=== PATIENT | female | born 1945 | race Caucasian/White ===

== ENCOUNTER → 2016-08-02 | Outpatient (CLI) | payer OTHER, MEDICARE | LOC: FIMAGING 16:52 | PROVIDERS: ATTEND Radiology Diagnostic Radiology | DX: N90.89 Other specified noninflammatory disorders of vulva and perineum (principal) ==

== ENCOUNTER → 2016-09-30 | Outpatient (CLI) | payer OTHER, MEDICARE | LOC: FIMAGING 11:16 | PROVIDERS: ATTEND Nurse Practitioner | DX: N90.89 Other specified noninflammatory disorders of vulva and perineum (principal); C20 Malignant neoplasm of rectum ==

== ENCOUNTER 2016-10-25 11:48 | Day surgery (SDC) | payer OTHER, MEDICARE ==
[2016-10-25] MEDS ORDERED: LIDOCAINE 2% JELLY 20 ML (UROJECT) ONE (11:54)
[2016-10-25] MEDS ORDERED: NS 1,000 ML IV SCH (12:00)
[2016-10-25] MEDS ORDERED: DEXMEDETOMIDINE HCL 400 MCG in NS 100 ML IV SCH (12:30)
[2016-10-25] MEDS ORDERED: VANCOMYCIN HCL/NORMAL SALINE 250 ML IV ONE (12:30)
[2016-10-25] MEDS ORDERED: fentaNYL 100 MCG/2 ML INJ ONE (13:34)
[2016-10-25] MEDS ORDERED: MIDAZOLAM 2 MG/2 ML VIAL ONE (13:34)
[2016-10-25] MEDS ORDERED: IOPAMIDOL (ISOVUE-300) 100 ML BTL ONE (14:05)
[2016-10-25] MEDS ORDERED: ONDANSETRON 4 MG/2 ML VIAL IVP PRN (14:29)
[2016-10-25 15:25] VITALS: PULSE 53; RESP 16; TEMP 96.8
[2016-10-25 15:54] VITALS: BP 137/78; O2SAT 96
== END 2016-10-25 15:45 | disposition home or self-care (01) ==
LOC: FIMAGING 11:48
PROVIDERS: ATTEND Radiology Diagnostic Radiology
PROC: 0T29X0Z Change Drainage Device in Ureter, External Approach (ICD-10-PCS; principal; 2016-10-25 14:12)
DX: Z46.6 Encounter for fitting and adjustment of urinary device (principal); C76.3 Malignant neoplasm of pelvis
CPT/HCPCS: 50385; 99152; C1729; C1769; C1773; J1644; J2250; J3010; J3370; Q9967

== ENCOUNTER 2017-03-03 07:58 | Day surgery (SDC) | payer OTHER, MEDICARE ==
[~2017-03-03 07:58] MED LIST: DEXMEDETOMIDINE HCL 200 MCG in NS 50 ML IV ONE
[2017-03-03] MEDS ORDERED: NS 1,000 ML IV SCH (08:15)
[2017-03-03] MEDS ORDERED: VANCOMYCIN HCL/NORMAL SALINE 250 ML IV ONE (09:00)
[2017-03-03] MEDS ORDERED: DEXMEDETOMIDINE HCL 200 MCG in NS 50 ML IV ONE (09:00)
[2017-03-03] MEDS ORDERED: fentaNYL 100 MCG/2 ML INJ ONE ×2 (09:23→09:53)
[2017-03-03] MEDS ORDERED: MIDAZOLAM 2 MG/2 ML VIAL ONE ×2 (09:23→09:54)
[2017-03-03] MEDS ORDERED: IOPAMIDOL (ISOVUE-300) 100 ML BTL ONE (09:25)
[2017-03-03] MEDS ORDERED: LIDOCAINE 2% JELLY 20 ML (UROJECT) ONE (09:25)
== END 2017-03-03 12:30 | disposition home or self-care (01) ==
LOC: FIMAGING 07:58
PROVIDERS: ATTEND Internal Medicine Hematology & Oncology
PROC: 0T29X0Z Change Drainage Device in Ureter, External Approach (ICD-10-PCS; principal; 2017-03-03 10:50)
DX: Z46.6 Encounter for fitting and adjustment of urinary device (principal); T83.122A Displacement of indwelling ureteral stent, initial encounter; C21.8 Malignant neoplasm of overlapping sites of rectum, anus and anal canal; C20 Malignant neoplasm of rectum; Z87.440 Personal history of urinary (tract) infections; Z93.3 Colostomy status
CPT/HCPCS: J1642; J1644; J2250; J3010; J3370; Q9967

== ENCOUNTER → 2017-04-27 | Outpatient (CLI) | payer OTHER, MEDICARE ==
[~2017-04-27] MED LIST changes: -DEXMEDETOMIDINE HCL 200 MCG in NS 50 ML IV ONE; +GADOBUTROL 10 ML VIAL IVP ONE
== END ==
LOC: FIMAGING 15:38
PROVIDERS: ATTEND Internal Medicine Hematology & Oncology
DX: M51.36 Other intervertebral disc degeneration, lumbar region (principal); M48.061 Spinal stenosis, lumbar region without neurogenic claudication; M48.07 Spinal stenosis, lumbosacral region; M46.96 Unspecified inflammatory spondylopathy, lumbar region; D70.9 Neutropenia, unspecified; C21.8 Malignant neoplasm of overlapping sites of rectum, anus and anal canal; C20 Malignant neoplasm of rectum
CPT/HCPCS: 72158; A9585; J1642

== ENCOUNTER → 2017-05-09 | Outpatient (CLI) | payer OTHER, MEDICARE | LOC: FIMAGING 15:00 | PROVIDERS: ATTEND Internal Medicine Hematology & Oncology | DX: M84.48XA Pathological fracture, other site, initial encounter for fracture (principal); M51.86 Other intervertebral disc disorders, lumbar region; C21.8 Malignant neoplasm of overlapping sites of rectum, anus and anal canal ==

== ENCOUNTER 2017-05-19 06:51 | Day surgery (SDC) | payer OTHER, MEDICARE ==
[2017-05-19 07:57] VITALS: PULSE 57; RESP 20
[2017-05-19 08:07] LABS: PLATELET COUNT 146 10^3/uL (150-400)
[2017-05-19] MEDS ORDERED: MEPERIDINE 25 MG/ML SYR IVP PRN (08:07)
[2017-05-19] MEDS ORDERED: ceFAZolin 2 GM/SWFI 2 GM/20 ML SYR IVP ONE (08:07)
[2017-05-19] MEDS ORDERED: FLUMAZENIL 0.5 MG/5 ML MDV IVP PRN (08:07)
[2017-05-19] MEDS ORDERED: MIDAZOLAM 2 MG/2 ML VIAL IVP PRN (08:07)
[2017-05-19] MEDS ORDERED: fentaNYL 100 MCG/2 ML INJ IVP PRN (08:07)
[2017-05-19] MEDS ORDERED: DEXAMETHASONE 10 MG/ML VIAL IVP ONE (08:07)
[2017-05-19] MEDS ORDERED: NALOXONE HCL 0.4 MG/ML INJ IVP PRN (08:07)
[2017-05-19] MEDS ORDERED: HEPARIN 10,000 UNIT/10 ML MDV IVP PRN (08:07)
[2017-05-19] MEDS ORDERED: GLUCAGON HCL 1 MG VIAL IVP PRN (08:07)
[2017-05-19] MEDS ORDERED: ALTEPLASE 2 MG VIAL IVP PRN (08:07)
[2017-05-19] MEDS ORDERED: NS 1,000 ML IV ONE (08:07)
[2017-05-19] MEDS ORDERED: PROTAMINE SULFATE 50 MG/5 ML VIAL IVP PRN (08:07)
[2017-05-19] MEDS ORDERED: LIDOCAINE 1% 300 MG/30 ML SDV ONE (08:33)
[2017-05-19] MEDS ORDERED: BUPIVACAINE 0.5% 10 ML SDV ONE (08:34)
--- NOTE | 2017-05-19 08:34 | PDGENHP ---
History & Physical Chief Complaint: Right posterior buttock pain, radiating to groin History of Present Illness: 6 months of worsening pain 8/10. MRI shows R sacral insufficiency fracture. Sacrum was irradiated for metastatic colon CA one year ago. Pertinent Past, Social, Family History: Colostomy, Iliostomy, nephrostomy, GERD , GI bleed.Liver metastases. Former smoker. Relevant Physical Exam: MRI reviewed. Cardiorespiratory Assessment: Lungs: clear to auscultation. Heart: RRR, no murmur, 56 bpm.
[2017-05-19 08:36] LABS: INR 1.01 (0.83-1.16); PROTIME(PATIENT) 13.5 SEC (12.0-15.0)
[2017-05-19] MEDS ORDERED: ONDANSETRON 4 MG/2 ML VIAL ONE (08:37)
--- NOTE | 2017-05-19 08:38 | PDPROPOC ---
Sedation Plan of Care ASA Classification: ASA 3 Planned drugs: fentanyl, midazolam Mallampati Score: Class 2 Mallampati Reference Image: Patient passed 3-3-2 rule?: Yes
[2017-05-19] MEDS ORDERED: ONDANSETRON DISINTEGRATING 4 MG TAB PO PRN (10:44)
[2017-05-19] MEDS ORDERED: ONDANSETRON 4 MG/2 ML VIAL IVP PRN (10:44)
--- NOTE | 2017-05-19 10:44 | PDRADPN ---
Radiology Procedure Note Date of Procedure: 05/19/17 Radiologist: Raymond Raza Anesthesia: IV Sedation Pre-op Diagnosis: Sacral fracture Post-op Diagnosis: Same Indication: Post-radiation osteonecrosis, metastatic colon CA Procedure: Vertebroplasty of the sacrum Finding(s): 10 ml cement instilled via 4 needles. Inf/Abcess present in the surg proc area at time of surgery?: No EBL: Minimal Complications: None.
[2017-05-19 13:27] VITALS: BP 132/68; TEMP 97.5; O2SAT 95
== END 2017-05-19 13:15 | disposition home or self-care (01) ==
LOC: FIMAGING 06:51
PROVIDERS: ATTEND Radiology Diagnostic Radiology
PROC: 0QU13JZ Supplement Sacrum with Synthetic Substitute, Percutaneous Approach (ICD-10-PCS; principal; 2017-05-19 10:54)
DX: M87.38 Other secondary osteonecrosis, other site (principal); Z85.830 Personal history of malignant neoplasm of bone; Z92.3 Personal history of irradiation; Z85.05 Personal history of malignant neoplasm of liver; C18.9 Malignant neoplasm of colon, unspecified; Z87.891 Personal history of nicotine dependence
CPT/HCPCS: J0690; J1100; J1642; J2250; J2310; J2405; J3010

== ENCOUNTER → 2017-06-06 | Outpatient (CLI) | payer OTHER, MEDICARE | LOC: FIMAGING 18:40 | PROVIDERS: ATTEND Internal Medicine Hematology & Oncology | DX: S32.491A Other specified fracture of right acetabulum, initial encounter for closed fracture (principal); M89.8X8 Other specified disorders of bone, other site; M25.451 Effusion, right hip; N13.30 Unspecified hydronephrosis; N13.4 Hydroureter | CPT/HCPCS: 73723; A9585 ==

== ENCOUNTER 2017-06-09 10:05 | Day surgery (SDC) | payer OTHER, MEDICARE ==
[~2017-06-09 10:05] MED LIST changes: +DEXMEDETOMIDINE IN 0.9 % NACL 50 ML IV ONE; -GADOBUTROL 10 ML VIAL IVP ONE; +VANCOMYCIN HCL/NORMAL SALINE 250 ML IV ONE
[2017-06-09] MEDS ORDERED: fentaNYL 100 MCG/2 ML INJ IVP PRN (10:13)
[2017-06-09] MEDS ORDERED: FLUMAZENIL 0.5 MG/5 ML MDV IVP PRN (10:13)
[2017-06-09] MEDS ORDERED: NALOXONE HCL 0.4 MG/ML INJ IVP PRN (10:13)
[2017-06-09] MEDS ORDERED: MIDAZOLAM 2 MG/2 ML VIAL IVP PRN (10:13)
[2017-06-09] MEDS ORDERED: MEPERIDINE 25 MG/ML SYR IVP PRN (10:13)
[2017-06-09] MEDS ORDERED: NS 1,000 ML IV SCH (10:15)
[2017-06-09] MEDS ORDERED: NALOXONE HCL 0.4 MG/ML INJ ONE (11:19)
[2017-06-09] MEDS ORDERED: MIDAZOLAM 2 MG/2 ML VIAL ONE (11:19)
[2017-06-09] MEDS ORDERED: fentaNYL 100 MCG/2 ML INJ ONE (11:20)
[2017-06-09] MEDS ORDERED: FLUMAZENIL 0.5 MG/5 ML MDV IVP ONE (11:20)
--- NOTE | 2017-06-09 12:11 | PDGENHP ---
History & Physical Chief Complaint: routine ureteral stent change History of Present Illness: pelvic cancer, under control. Routine trans- uretheral stent change. Acetabular fracture. Pertinent Past, Social, Family History: Chronic steroid use. Relevant Physical Exam: not in distress. Cardiorespiratory Assessment: RRR. CTA
--- NOTE | 2017-06-09 12:11 | PDPROPOC ---
Sedation Plan of Care Sedation Plan of Care: vital signs stable, mental status noted, patient educated of risks, benefits, alternatives, patient can tolerate sedation ASA Classification: ASA 3 Planned drugs: fentanyl, midazolam Mallampati Score: Class 1 Mallampati Reference Image: Patient passed 3-3-2 rule?: Yes
[2017-06-09] MEDS ORDERED: LIDOCAINE 2% JELLY 20 ML (UROJECT) ONE (14:44)
[2017-06-09] MEDS ORDERED: ACETAMINOPHEN 325 MG TAB PO PRN (15:15)
[2017-06-09] MEDS ORDERED: ONDANSETRON 4 MG/2 ML VIAL IVP PRN (15:15)
--- NOTE | 2017-06-09 15:16 | PDRADPN ---
Radiology Procedure Note Date of Procedure: 06/09/17 Radiologist: Snehal Ramos Anesthesia: IV Sedation Pre-op Diagnosis: pelvic cancer; kidney blockage Post-op Diagnosis: same Indication: routine ureteral stent change Procedure: transuretheral ureter stent change Finding(s): see report Inf/Abcess present in the surg proc area at time of surgery?: No EBL: Minimal Complications: none
[2017-06-09] MEDS ORDERED: IOPAMIDOL (ISOVUE-300) 100 ML BTL ONE (15:21)
[2017-06-09 15:58] VITALS: TEMP 97
[2017-06-09 15:59] VITALS: PULSE 50; RESP 16
[2017-06-09 16:25] VITALS: BP 138/77; O2SAT 96
== END 2017-06-09 16:20 | disposition home or self-care (01) ==
LOC: FIMAGING 10:05
PROVIDERS: ATTEND Radiology Diagnostic Radiology
PROC: 0T29X0Z Change Drainage Device in Ureter, External Approach (ICD-10-PCS; principal; 2017-06-09 15:26)
DX: Z46.6 Encounter for fitting and adjustment of urinary device (principal); C20 Malignant neoplasm of rectum; C78.6 Secondary malignant neoplasm of retroperitoneum and peritoneum; N13.5 Crossing vessel and stricture of ureter without hydronephrosis; Z87.891 Personal history of nicotine dependence
CPT/HCPCS: 50385; 99152; 99153; C1729; C1769; C1773; C1894; J1642; J1644; J2250; J2310; J3010; J3370; Q9967

== ENCOUNTER → 2017-07-12 | Day surgery (SDC) | payer OTHER, MEDICARE ==
[~2017-07-12] MED LIST changes: -DEXMEDETOMIDINE IN 0.9 % NACL 50 ML IV ONE; +IOPAMIDOL (ISOVUE-M 300) 15 ML VIAL ONE; +TRIAMCINOLONE ACETONIDE 200 MG/5 ML MDV IM ONE; -VANCOMYCIN HCL/NORMAL SALINE 250 ML IV ONE
== END | disposition home or self-care (01) ==
LOC: FIMAGING 13:58
PROVIDERS: ATTEND Internal Medicine Hematology & Oncology
DX: M54.5 Low back pain (principal)
CPT/HCPCS: J3301; Q9967

== ENCOUNTER → 2017-08-10 | Outpatient (CLI) | payer OTHER, MEDICARE | LOC: BMCIMAGING 14:13 | PROVIDERS: ATTEND Nurse Practitioner | DX: Z13.820 Encounter for screening for osteoporosis (principal); M85.89 Other specified disorders of bone density and structure, multiple sites ==

== ENCOUNTER → 2017-09-22 | Day surgery (SDC) | payer OTHER, MEDICARE ==
[~2017-09-22] MED LIST changes: +ACETAMINOPHEN 325 MG TAB PO PRN; +DEXMEDETOMIDINE HCL 200 MCG in NS 50 ML IV ONE; +FLUMAZENIL 0.5 MG/5 ML MDV IVP PRN; +IOPAMIDOL (ISOVUE-300) 100 ML BTL ONE; -IOPAMIDOL (ISOVUE-M 300) 15 ML VIAL ONE; +LIDOCAINE 2% JELLY 20 ML (UROJECT) ONE; +MEPERIDINE 25 MG/ML SYR IVP PRN; +MIDAZOLAM 2 MG/2 ML VIAL IVP PRN; +NALOXONE HCL 0.4 MG/ML INJ IVP PRN; +NS 1,000 ML IV SCH; +ONDANSETRON 4 MG/2 ML VIAL IVP PRN; -TRIAMCINOLONE ACETONIDE 200 MG/5 ML MDV IM ONE; +fentaNYL 100 MCG/2 ML INJ IVP PRN
--- NOTE | 2017-09-22 11:02 | PDGENHP ---
History & Physical Chief Complaint: RT HYDRONEPHROSIS History of Present Illness: PELVIC CANCER, RT URETERAL STRICTURE REQUIRING STENT CHANGE. [id number] STENT CHANGE. Pertinent Past, Social, Family History: CURRENTLY ON ANTIBIOTICS FOR UTI. CHOLOSTOMY X 2, TONSILECTOMY, ANKLE SURGERY, C SECTION, PORT PLACEMENT. Relevant Physical Exam: N/A Cardiorespiratory Assessment: RRR, CTA
--- NOTE | 2017-09-22 12:27 | PDRADPN ---
Radiology Procedure Note Date of Procedure: 09/22/17 Radiologist: Snehal Ramos Anesthesia: IV Sedation Pre-op Diagnosis: rectal ca Post-op Diagnosis: same Indication: obstruction of rt kidney; routine stent change Procedure: stent change Finding(s): 240cc purulent urine removed. Inf/Abcess present in the surg proc area at time of surgery?: No Complications: none
[2017-09-22 14:09] VITALS: BP 118/67
== END | disposition home or self-care (01) ==
LOC: FIMAGING 09:40
PROVIDERS: ATTEND Internal Medicine Hematology & Oncology
PROC: 0T767DZ Dilation of Right Ureter with Intraluminal Device, Via Natural or Artificial Opening (ICD-10-PCS; principal; 2017-09-22 12:40)
DX: Z46.6 Encounter for fitting and adjustment of urinary device (principal); N13.0 Hydronephrosis with ureteropelvic junction obstruction; C20 Malignant neoplasm of rectum; Z87.891 Personal history of nicotine dependence
CPT/HCPCS: 50385; C1729; C1769; C1894; J1642; J2250; J2310; J3010; Q9967

== ENCOUNTER 2017-12-07 11:35 | Day surgery (SDC) | payer OTHER, MEDICARE ==
[2017-12-07] MEDS ORDERED: FLUMAZENIL 0.5 MG/5 ML MDV IVP PRN (11:46)
[2017-12-07] MEDS ORDERED: ONDANSETRON 4 MG/2 ML VIAL IVP ONE (11:46)
[2017-12-07] MEDS ORDERED: NALOXONE HCL 0.4 MG/ML INJ IVP PRN (11:46)
[2017-12-07] MEDS ORDERED: fentaNYL 100 MCG/2 ML INJ IVP PRN (11:46)
[2017-12-07] MEDS ORDERED: MEPERIDINE 25 MG/ML SYR IVP PRN (11:46)
[2017-12-07] MEDS ORDERED: MIDAZOLAM 2 MG/2 ML VIAL IVP PRN (11:46)
[2017-12-07] MEDS ORDERED: FLUMAZENIL 0.5 MG/5 ML MDV IVP ONE (11:51)
[2017-12-07] MEDS ORDERED: fentaNYL 100 MCG/2 ML INJ ONE ×2 (11:52→14:29)
[2017-12-07] MEDS ORDERED: NALOXONE HCL 0.4 MG/ML INJ ONE (11:52)
[2017-12-07] MEDS ORDERED: MIDAZOLAM 2 MG/2 ML VIAL ONE ×2 (11:52→14:29)
[2017-12-07] MEDS ORDERED: NS 1,000 ML IV SCH (12:00)
[2017-12-07] MEDS ORDERED: LIDOCAINE 2% JELLY 20 ML (UROJECT) ONE (13:06)
[2017-12-07] MEDS ORDERED: IOPAMIDOL (ISOVUE-300) 100 ML BTL ONE (13:06)
--- NOTE | 2017-12-07 13:58 | PDGENHP ---
History & Physical Chief Complaint: labial/colorectal cancer History of Present Illness: routine transurethral stent change. Pertinent Past, Social, Family History: cholostomy x 2, tonsillectomy, ankle surgery, c/sec, port placement; former smoker. Relevant Physical Exam: in no distress Cardiorespiratory Assessment: rrr, cta
[2017-12-07] MEDS ORDERED: ONDANSETRON 4 MG/2 ML VIAL IVP PRN (14:37)
--- NOTE | 2017-12-07 14:46 | PDRADPN ---
Radiology Procedure Note Date of Procedure: 12/07/17 Radiologist: Snehal Ramos Anesthesia: IV Sedation Pre-op Diagnosis: rectal ca Post-op Diagnosis: same Indication: routine stent change Procedure: transurethral stent change Finding(s): stent changed. Inf/Abcess present in the surg proc area at time of surgery?: No
[2017-12-07 15:40] VITALS: BP 147/76
== END 2017-12-07 15:55 | disposition home or self-care (01) ==
LOC: FIMAGING 11:35
PROVIDERS: ATTEND Internal Medicine Hematology & Oncology
PROC: 0T767DZ Dilation of Right Ureter with Intraluminal Device, Via Natural or Artificial Opening (ICD-10-PCS; principal; 2017-12-07 14:41)
DX: Z46.6 Encounter for fitting and adjustment of urinary device (principal); C20 Malignant neoplasm of rectum; Z87.891 Personal history of nicotine dependence
CPT/HCPCS: 50385; 99152; C1729; C1769; J1642; J2250; J2310; J3010; Q9967

== ENCOUNTER → 2017-12-18 | Outpatient (CLI) | payer OTHER, MEDICARE ==
[~2017-12-18] MED LIST changes: -ACETAMINOPHEN 325 MG TAB PO PRN; -DEXMEDETOMIDINE HCL 200 MCG in NS 50 ML IV ONE; -FLUMAZENIL 0.5 MG/5 ML MDV IVP PRN; +GADOBUTROL 10 ML VIAL IVP ONE; -IOPAMIDOL (ISOVUE-300) 100 ML BTL ONE; -LIDOCAINE 2% JELLY 20 ML (UROJECT) ONE; -MEPERIDINE 25 MG/ML SYR IVP PRN; -MIDAZOLAM 2 MG/2 ML VIAL IVP PRN; -NALOXONE HCL 0.4 MG/ML INJ IVP PRN; -NS 1,000 ML IV SCH; -ONDANSETRON 4 MG/2 ML VIAL IVP PRN; -fentaNYL 100 MCG/2 ML INJ IVP PRN
== END ==
LOC: FIMAGING 19:54
PROVIDERS: ATTEND Internal Medicine Hematology & Oncology
DX: M54.9 Dorsalgia, unspecified (principal); M16.11 Unilateral primary osteoarthritis, right hip; C20 Malignant neoplasm of rectum
CPT/HCPCS: 73723; A9585

== ENCOUNTER 2018-02-26 11:29 | Day surgery (SDC) | payer OTHER, MEDICARE ==
[2018-02-26] MEDS ORDERED: fentaNYL 100 MCG/2 ML INJ IVP PRN (12:17)
[2018-02-26] MEDS ORDERED: FLUMAZENIL 0.5 MG/5 ML MDV IVP PRN (12:17)
[2018-02-26] MEDS ORDERED: NALOXONE HCL 0.4 MG/ML INJ IVP PRN (12:17)
[2018-02-26] MEDS ORDERED: MIDAZOLAM 2 MG/2 ML VIAL IVP PRN (12:17)
[2018-02-26] MEDS ORDERED: NS 1,000 ML IV SCH (12:30)
[2018-02-26] MEDS ORDERED: LIDOCAINE 2% JELLY 20 ML (UROJECT) ONE (13:59)
[2018-02-26] MEDS ORDERED: IOPAMIDOL (ISOVUE-300) 100 ML BTL ONE (13:59)
[2018-02-26] MEDS ORDERED: fentaNYL 100 MCG/2 ML INJ ONE ×2 (14:17→14:49)
[2018-02-26] MEDS ORDERED: FLUMAZENIL 0.5 MG/5 ML MDV IVP ONE (14:17)
[2018-02-26] MEDS ORDERED: MIDAZOLAM 2 MG/2 ML VIAL ONE ×2 (14:17→14:49)
[2018-02-26] MEDS ORDERED: NALOXONE HCL 0.4 MG/ML INJ ONE (14:17)
--- NOTE | 2018-02-26 14:25 | PDGENHP ---
History & Physical Chief Complaint: PELVIC CANCER History of Present Illness: ROUTINE URETERAL STENT CHANGE Pertinent Past, Social, Family History: N/A Relevant Physical Exam: NO NEW COMPLAINTS Cardiorespiratory Assessment: RRR, CTA
--- NOTE | 2018-02-26 14:26 | PDPROPOC ---
Sedation Plan of Care Sedation Plan of Care: vital signs stable, mental status noted, patient educated of risks, benefits, alternatives, patient can tolerate sedation ASA Classification: ASA 3 Planned drugs: fentanyl, midazolam Mallampati Score: Class 2 Mallampati Reference Image: Patient passed 3-3-2 rule?: Yes
--- NOTE | 2018-02-26 15:22 | PDRADPN ---
Radiology Procedure Note Date of Procedure: 02/26/18 Radiologist: Snehal Ramos Anesthesia: IV Sedation Pre-op Diagnosis: CERVICAL CANCER Post-op Diagnosis: SAME Indication: ROUTINE URETERAL STENT CHANGE Procedure: SAME Finding(s): RT URETERAL STENT CHANGED. Inf/Abcess present in the surg proc area at time of surgery?: No
[2018-02-26 15:51] VITALS: BP 148/85
== END 2018-02-26 16:15 | disposition home or self-care (01) ==
LOC: FIMAGING 11:29
PROVIDERS: ATTEND Internal Medicine Hematology & Oncology
PROC: 0T767DZ Dilation of Right Ureter with Intraluminal Device, Via Natural or Artificial Opening (ICD-10-PCS; principal; 2018-02-26)
DX: Z46.6 Encounter for fitting and adjustment of urinary device (principal); C20 Malignant neoplasm of rectum
CPT/HCPCS: J1642; J1644; J2250; J2310; J3010; Q9967

== ENCOUNTER 2018-03-16 12:28 | Day surgery (SDC) | payer OTHER, MEDICARE ==
[2018-03-16] MEDS ORDERED: FLUMAZENIL 0.5 MG/5 ML MDV IVP PRN (12:38)
[2018-03-16] MEDS ORDERED: fentaNYL 100 MCG/2 ML INJ IVP PRN ×2 (12:38→16:49)
[2018-03-16] MEDS ORDERED: NALOXONE HCL 0.4 MG/ML INJ IVP PRN ×2 (12:38→16:49)
[2018-03-16] MEDS ORDERED: MIDAZOLAM 2 MG/2 ML VIAL IVP PRN (12:38)
[2018-03-16] MEDS ORDERED: NS 1,000 ML IV SCH (12:45)
--- NOTE | 2018-03-16 13:46 | PDANEPAE ---
ANE History of Present Illness Sacral tumor for debulking ANE Past Medical History - Cardiovascular History Hx Hypertension: Yes Hx Arrhythmias: No Hx Chest Pain: No Hx Coronary Artery / Peripheral Vascular Disease: No Hx CHF / Valvular Disease: No Hx Palpitations: No Cardiovascular History Comment: SVT runs X2 with cardioversion - Pulmonary History Hx COPD: No Hx Asthma/Reactive Airway Disease: No Hx Recent Upper Respiratory Infection: No Hx Oxygen in Use at Home: No Hx Sleep Apnea: No Pulmonary History Comment: LUNG METATSTASES - Neurologic History Hx Cerebrovascular Accident: No Hx Seizures: No Hx Dementia: No Neurologic History Comment: 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 - Endocrine History Hx Diabetes: No - Renal History Hx Renal Disorders: Yes Renal History Comment: NEPHROSTOMY TUBE HX; Ureteral Stents - Liver History Hx Hepatic Disorders: Yes Hepatic History Comment: LIVER METASTASES - Neurological & Psychiatric Hx Hx Neurological and Psychiatric Disorders: No - Cancer History Hx Cancer: Yes 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 NEUROPATHY in hands - Chronic Pain History Chronic Pain: Yes - Surgical History Prior Surgeries: CHOLOSTOMY X2. TONSILECTOMY. ANKLE SURG. C SEC. PORT PLACEMENT ANE Review of Systems Review of Systems: - Exercise capacity METS (RN): 1 METS ANE Patient History - Allergies Allergies/Adverse Reactions: No Known Allergies Allergy (Verified 07/11/17 14:26) - Home Medications Home Medications: Atenolol [Tenormin 100 mg (*)] 100 mg PO DAILY 12/02/14 [Last Taken 03/16/18] Eszopiclone [Lunesta] 3 mg PO HS PRN 12/02/14 [Last Taken 03/15/18] Ibuprofen 600 mg PO PRN PRN 05/16/17 [Last Taken 02/26/18 09:00] Dilaudid 2 mg PO PRN PRN 02/22/18 [Last Taken 03/16/18 12:30] Cinvanti 130 mg IV 02/26/18 [Last Taken 02/20/18] DEXAMETHASONE 5 mg 02/26/18 [Last Taken 03/15/18] Fluorouracil 3,860 mg IV 02/26/18 [Last Taken 02/20/18] Fluorouracil 640 mg IV 02/26/18 [Last Taken 02/20/18] Hydrocortisone 100 mg IV 02/26/18 [Last Taken 02/13/18] Irinotecan HCl 200 mg IV 02/26/18 [Last Taken 02/20/18] Leucovorin Calcium 644 mg IV 02/26/18 [Last Taken 02/20/18] Methylprednisolone Sodium Succ 125 mg IV 02/26/18 [Last Taken Unknown] Palonosetron HCl 0.25 mg IV 02/26/18 [Last Taken 02/20/18] Amoxicillin 250 mg 03/15/18 [Last Taken 03/15/18 250] fentaNYL [Duragesic] 1 ea 03/15/18 [Last Taken 03/14/18] - Smoking Hx Smoking Status: Former smoker - Family Anes Hx Family Hx Anesthesia Complications: NONE ANE Labs/Vital Signs - Vital Signs Height: 165.1 cm Weight: 54.431 kg ANE Physical Exam - Airway Neck exam: decreased ROM Mallampati Score: Class 2 Mouth exam: normal dental/mouth exam - Pulmonary Pulmonary: no respiratory distress - Cardiovascular Cardiovascular: regular rate and rhythym - ASA Status ASA Status: III ANE Anesthesia Plan Anesthesia Plan: general endotracheal anesthesia
[2018-03-16] MEDS ORDERED: MIDAZOLAM 2 MG/2 ML VIAL ONE ×2 (13:50→14:18)
[2018-03-16] MEDS ORDERED: fentaNYL 100 MCG/2 ML INJ ONE ×2 (13:50→14:18)
[2018-03-16] MEDS ORDERED: IOPAMIDOL (ISOVUE-M 300) 15 ML VIAL ONE (14:10)
[2018-03-16] MEDS ORDERED: TRIAMCINOLONE ACETONIDE 200 MG/5 ML MDV IM ONE (14:10)
[2018-03-16] MEDS ORDERED: SUCCINYLCHOLINE CHLORIDE 200 MG/10 ML VIAL ONE (14:35)
[2018-03-16] MEDS ORDERED: ROCURONIUM 100 MG/10 ML VIAL ONE (14:35)
[2018-03-16] MEDS ORDERED: NALOXONE HCL 0.4 MG/ML INJ ONE (14:36)
[2018-03-16] MEDS ORDERED: FLUMAZENIL 0.5 MG/5 ML MDV IVP ONE (14:36)
[2018-03-16] MEDS ORDERED: BUPIVACAINE 0.5% 30 ML SDV ONE (14:54)
[2018-03-16] MEDS ORDERED: IOPAMIDOL (ISOVUE-300) 100 ML BTL ONE (14:55)
[2018-03-16] MEDS ORDERED: PROPOFOL/EMULSION 500 MG/50 ML BOTTLE IV ONE (14:57)
[2018-03-16] MEDS ORDERED: PROPOFOL 200 MG/20 ML VIAL ONE (14:57)
[2018-03-16] MEDS ORDERED: LIDOCAINE 1% 300 MG/30 ML SDV ONE (15:05)
[2018-03-16] MEDS ORDERED: HYDROCORTISONE 100 MG/2 ML VIAL ONE (16:00)
[2018-03-16] MEDS ORDERED: GLYCOPYRROLATE 0.2 MG/1 ML VIAL ONE (16:00)
[2018-03-16] MEDS ORDERED: LIDOCAINE 2% 2 ML INJ ONE (16:00)
[2018-03-16] MEDS ORDERED: NEOSTIGMINE METHYLSULFATE 10 MG/10 ML MDV ONE (16:00)
[2018-03-16] MEDS ORDERED: PHENYLEPHRINE 10 MG/ML SDV ONE (16:00)
[2018-03-16] MEDS ORDERED: ONDANSETRON 4 MG/2 ML VIAL IVP PRN (16:49)
--- NOTE | 2018-03-16 16:50 | POSTANESTH ---
Post Anesthetic Evaluation Cardiovascular Status: Similar to Pre-Op Cond Respiratory Status: Similar to Pre-op Cond. Level of Consciousness/Mental Status: Alert and Oriented, Mildly Sleepy, Arousable Pain Control: Adequate, Prn Tx Ordered Nausea/Vomiting Control: Adequate, Prn Tx Ordered Complications Possibly Related to Anesthesia: None Noted
--- NOTE | 2018-03-16 16:57 | PDRADPRE ---
Radiology History & Physical Indication for procedure: cancer (Destructive left sacral mass causing intractable pain; Plan for caudal KATHARINA and MWA of sacral mass) Home medications: Atenolol [Tenormin 100 mg (*)] 100 mg PO DAILY 12/02/14 [Last Taken 03/16/18] Eszopiclone [Lunesta] 3 mg PO HS PRN 12/02/14 [Last Taken 03/15/18] Ibuprofen 600 mg PO PRN PRN 05/16/17 [Last Taken 02/26/18 09:00] Dilaudid 2 mg PO PRN PRN 02/22/18 [Last Taken 03/16/18 12:30] Cinvanti 130 mg IV 02/26/18 [Last Taken 02/20/18] DEXAMETHASONE 5 mg 02/26/18 [Last Taken 03/15/18] Fluorouracil 3,860 mg IV 02/26/18 [Last Taken 02/20/18] Fluorouracil 640 mg IV 02/26/18 [Last Taken 02/20/18] Hydrocortisone 100 mg IV 02/26/18 [Last Taken 02/13/18] Irinotecan HCl 200 mg IV 02/26/18 [Last Taken 02/20/18] Leucovorin Calcium 644 mg IV 02/26/18 [Last Taken 02/20/18] Methylprednisolone Sodium Succ 125 mg IV 02/26/18 [Last Taken Unknown] Palonosetron HCl 0.25 mg IV 02/26/18 [Last Taken 02/20/18] Amoxicillin 250 mg 03/15/18 [Last Taken 03/15/18 250] fentaNYL [Duragesic] 1 ea 03/15/18 [Last Taken 03/14/18] Allergies/Adverse Reactions: No Known Allergies Allergy (Verified 07/11/17 14:26) Mental status: A&Ox3 Heart exam: regular rate and rhythm Lungs exam: clear to auscultation Mallampati Score: Class 2
--- NOTE | 2018-03-16 16:59 | PDRADPN ---
Radiology Procedure Note Date of Procedure: 03/16/18 Radiologist: Jon cMarthur Anesthesia: Epidural, GET(General Endotracheal) Pre-op Diagnosis: Destructive left sacral mass Post-op Diagnosis: Destructive left sacral mass Indication: Palliation, intractable pain Procedure: Caudal KATHARINA, MWA sacral mass Finding(s): Interval enlargement of left sacral mass now engulfing/destroying left sacral neuroforamen. Successful caudal KATHARINA and MWA of left sacral mass. Inf/Abcess present in the surg proc area at time of surgery?: No
[2018-03-16 18:53] VITALS: BP 151/71
== END 2018-03-16 18:10 | disposition home or self-care (01) ==
LOC: FSGY 12:28
PROVIDERS: ATTEND Internal Medicine Hematology & Oncology
PROC: 0Q503ZZ Destruction of Lumbar Vertebra, Percutaneous Approach (ICD-10-PCS; principal; 2018-03-16 15:00)
PROC: 3E0R3BZ Introduction of Anesthetic Agent into Spinal Canal, Percutaneous Approach (ICD-10-PCS; principal; 2018-03-16 15:00)
PROC: 3E0R33Z Introduction of Anti-inflammatory into Spinal Canal, Percutaneous Approach (ICD-10-PCS; principal; 2018-03-16 15:00)
DX: C79.51 Secondary malignant neoplasm of bone (principal); M54.18 Radiculopathy, sacral and sacrococcygeal region; C21.8 Malignant neoplasm of overlapping sites of rectum, anus and anal canal; C78.7 Secondary malignant neoplasm of liver and intrahepatic bile duct
CPT/HCPCS: J0330; J1720; J2250; J2310; J2370; J2704; J3010; J3301; Q9967

== ENCOUNTER 2018-03-29 12:34 | Inpatient (IN) | payer OTHER, MEDICARE ==
[2018-03-29] MEDS ORDERED: NS 500 ML IV ONE ×2 (13:04→19:32)
[2018-03-29 13:57] LABS: PLATELET COUNT 270 10^3/uL (150-400)
[2018-03-29 14:08] LABS: INR 1.09 (0.83-1.16); PROTIME(PATIENT) 14.3 SEC (12.0-15.0)
--- NOTE | 2018-03-29 15:51 | EDPHY ---
H & P Time Seen by Provider: 03/29/18 13:04 HPI/ROS: HPI Weakness, swelling in the right leg, anal rectal cancer with metastasis, burning with urination. 72-year-old female by ambulance from her home. This patient has a history of advanced in a rectal cancer with metastasis. She currently lives alone in a 3 story house. She has been ambulating with a walker but lately has become so weak that she has to crawl up her stairs. She presents to the emergency department with fever. We received a call from her general surgeon Dr. Malu Erazo. She was concerned about a possible DVT in the left lower extremity. She feels the patient needs to be admitted and worked up for infection. The patient states that she has had some chronic back pain. She reports she has had some discomfort with urination and feel she has been running a fever as well. Currently getting chemotherapy. ROS: Constitutional: No fever, no chills. As above. Eyes: No discharge. No changes in vision. ENT: No sore throat. No nasal congestion or rhinorrhea. Respiratory: No cough. No shortness of breath. Cardiac: No chest pain, no palpitations. Gastrointestinal: No abdominal pain, no vomiting, no diarrhea. Genitourinary: No hematuria. As above. Musculoskeletal: As above. No neck pain. No myalgias or arthralgias. Skin: No rashes. Neurological: No headache. No focal weakness or altered sensation. Past medical history: Hypertension, colorectal cancer with metastasis to the lungs currently on chemotherapy, tonsillectomy, x2, colon resection, vaginal rectal fissure, left ankle surgery. Social history: Lives alone. Family nearby and involved with her care. No alcohol. Nonsmoker. Physical Exam: General Appearance: Sleepy but arouses to voice. She does not appear in distress. This patient is responding to questions appropriately with short yes and no answers. This patient appears generally well-hydrated and well- nourished. Eyes: Pupils are small, equal and round and reactive to light at 2-1 mm bilaterally, no pallor or injection. No lid edema, erythema or injection. Respiratory: There are no retractions, lungs are clear to auscultation anteriorly with good air movement bilaterally. Left upper chest wall Port-A- Cath. Cardiovascular: Regular rate and rhythm. No murmur appreciated. Gastrointestinal: Right mid abdominal colostomy bag. Abdomen is soft and without significant tenderness on palpation throughout, no masses, bowel sounds normal. No focal tenderness at McBurney's point. No Tolliver sign. Neurological: Motor sensory function is grossly intact. Cranial nerves are normal. Skin: Warm and dry, no rashes. Musculoskeletal: Neck is supple and nontender. Extremities are asymmetric with diffuse right lower extremity swelling relative to the left side. No associated erythema or warmth. Her upper lower extremities are neurovascularly intact. All joints range without apparent pain or impingement. Psychiatric: No agitation. No depression. Database: EKG: Imaging: CT head without contrast: Age-related changes only. Results were discussed with staff radiologist Dr. Anthony Oquendo. Right lower extremity Doppler ultrasound: Negative for DVT. Results discussed with staff radiologist Dr. Anthony Oquendo. Chest x-ray PA and lateral; the cardiac mediastinal silhouette is unremarkable. Mild ground-glass appearance in the upper lobes. Dominant left pulmonary nodule at the base. Smaller pulmonary nodules suspected. No evidence of infiltrate or pneumothorax. No acute cardiopulmonary disease process noted. Interpreted by me. Procedures: Emergency department course: Triage vital signs reviewed. She is febrile. Vital signs are otherwise unremarkable. IV was placed. She was started on IV normal saline with 500 cc to 1 L to be given over the next hour. Patient meets criteria for sepsis. Protocol initiated. Urinalysis significant for white cells and leukocyte esterase. Patient will be started on IV Levaquin at 750 mg in the emergency department. Blood cultures pending. Urine culture ordered. Patient does not meet criteria for severe sepsis. Patient given IV hydromorphone, 0.5 mg as needed for pain. 3:50 p.m., patient re-evaluated. She is sleeping but arouses to voice. Plan for admission discussed with her. Results of her emergency department workup reviewed with her. She had family in the room but they are not present currently. I have discussed this patient's situation with our case management team. They are familiar with her situation. Plan will be to admit the patient to the hospitalist service and then hospice will be arranged. 4:00 p.m., spoke with hospitalist, Dr. Tuttle. Case discussed in detail with him. He accepts this patient for admission. She has been kept comfortable on IV hydromorphone during her emergency department stay. The patient's remaining emergency department course under my care has been uneventful. The patient was admitted in stable condition to the hospitalist service. I spoke with her family. I discussed all details of her care and plan for admission with them. All of their questions were answered. Differential Diagnosis: The differential diagnosis on this patient includes but is not limited to fever , urinary tract infection, dehydration, colorectal cancer with metastasis, hyponatremia. This represents a partial list of diagnoses considered. These considerations are based on history, physical exam, past history, reassessment and diagnostic testing. Smoking Status: Former smoker Constitutional: Initial Vital Signs Temperature (C) 38.8 C H 03/29/18 12:45 Heart Rate 74 03/29/18 12:45 Respiratory Rate 16 03/29/18 12:45 Blood Pressure 146/80 H 03/29/18 12:45 O2 Sat (%) 96 03/29/18 12:45 O2 Delivery Mode Room Air Allergies/Adverse Reactions: No Known Allergies Allergy (Verified 07/11/17 14:26) Home Medications: Medication Instructions Recorded Atenolol [Tenormin 100 mg (*)] 100 mg PO DAILY 03/29/18 Dexamethasone [Decadron 4 MG (*)] 4 mg PO BIDMEAL 03/29/18 Eszopiclone 3 mg PO HS PRN 03/29/18 HYDROmorphone HCL [Dilaudid 2 mg 2 mg PO Q3HRS PRN 03/29/18 (*)] Ibuprofen [Motrin (*)] 600 mg PO Q6 PRN 03/29/18 LORazepam [Ativan (*)] 1 mg PO Q6 PRN 03/29/18 fentaNYL [Duragesic 12 MCG Patch 24 mcg TD Q72H 03/29/18 (*)] Medical Decision Making - Diagnostics Imaging Results: Imaging Impressions Chest X-Ray 03/29/18 13:05 Impression: 1. Subtle groundglass infiltrates suspected involving the upper lobes. Consider aspiration. 2. Dominant pulmonary nodule left base with additional smaller pulmonary nodules suspected. Extremity Venous Study 03/29/18 13:32 Impression: No deep venous thrombosis right leg. Results called and discussed with Kelsi Epstein MD at 03/29/2018 14: 38. Head CT 03/29/18 14:36 Impression: No evidence for acute intracranial abnormality. Mild periventricular and deep hemispheric white matter change that can be seen with small vessel ischemic disease. Results called and discussed with Dr. Kelsi Epstein on March 29, 2018 at 1523 hours. - Data Points Laboratory Results: Laboratory Results 03/29/18 13:35 03/29/18 13:35 03/29/18 03/29/18 03/29/18 14:45 13:35 13:35 WBC 15.69 10^3/uL H 10^3/uL (3.80-9.50) RBC 3.26 10^6/uL L 10^6/uL (4.18-5.33) Hgb 10.0 g/dL L g/dL (12.6-16.3) Hct 29.9 % L % (38.0-47.0) MCV 91.7 fL fL (81.5-99.8) MCH 30.7 pg pg (27.9-34.1) MCHC 33.4 g/dL g/dL (32.4-36.7) RDW 15.4 % H % (11.5-15.2) Plt Count 270 10^3/uL 10^3/uL (150-400) MPV 10.0 fL fL (8.7-11.7) Neut % (Auto) 88.2 % H % (39.3-74.2) Lymph % (Auto) 4.7 % L % (15.0-45.0) Clare % (Auto) 6.4 % % (4.5-13.0) Eos % (Auto) 0.1 % L % (0.6-7.6) Baso % (Auto) 0.1 % L % (0.3-1.7) Nucleat RBC Rel Count 0.0 % % (0.0-0.2) Absolute Neuts (auto) 13.84 10^3/uL H 10^3/uL (1.70-6.50) Absolute Lymphs (auto) 0.74 10^3/uL L 10^3/uL (1.00-3.00) Absolute Monos (auto) 1.00 10^3/uL H 10^3/uL (0.30-0.80) Absolute Eos (auto) 0.01 10^3/uL L 10^3/uL (0.03-0.40) Absolute Basos (auto) 0.02 10^3/uL 10^3/uL (0.02-0.10) Absolute Nucleated RBC 0.00 10^3/uL 10^3/uL (0-0.01) Immature Gran % 0.5 % % (0.0-1.1) Immature Gran # 0.08 10^3/uL 10^3/uL (0.00-0.10) PT 14.3 SEC SEC (12.0-15.0) INR 1.09 (0.83-1.16) APTT 30.9 SEC SEC (23.0-38.0) VBG Lactic Acid Sodium Potassium Chloride Carbon Dioxide Anion Gap BUN Creatinine Estimated GFR Glucose Calcium Total Bilirubin Urine Color RAHEEM Urine Appearance HAZY Urine pH 5.0 (5.0-7.5) Ur Specific [place] 1.016 (1.002-1.030) Urine Protein NEGATIVE (NEGATIVE) Urine Ketones NEGATIVE (NEGATIVE) Urine Blood 1+ H (NEGATIVE) Urine Nitrate NEGATIVE (NEGATIVE) Urine Bilirubin NEGATIVE (NEGATIVE) Urine Urobilinogen NEGATIVE EU EU (0.2-1.0) Ur Leukocyte Esterase 2+ H (NEGATIVE) Urine RBC 5-10 /hpf H /hpf (0-3) Urine WBC 25-50 /hpf H /hpf (0-3) Ur Epithelial Cells NONE SEEN /lpf /lpf (NONE-1+) Urine Bacteria 2+ /hpf H /hpf (NONE SEEN) Urine Glucose 1+ H (NEGATIVE) 03/29/18 03/29/18 13:35 13:30 WBC RBC Hgb Hct MCV MCH MCHC RDW Plt Count MPV Neut % (Auto) Lymph % (Auto) Clare % (Auto) Eos % (Auto) Baso % (Auto) Nucleat RBC Rel Count Absolute Neuts (auto) Absolute Lymphs (auto) Absolute Monos (auto) Absolute Eos (auto) Absolute Basos (auto) Absolute Nucleated RBC Immature Gran % Immature Gran # PT INR APTT VBG Lactic Acid 1.2 mmol/L mmol/L (0.7-2.1) Sodium 126 mEq/L L mEq/L (135-145) Potassium 4.2 mEq/L mEq/L (3.3-5.0) Chloride 96 mEq/L L mEq/L (97-110) Carbon Dioxide 23 mEq/l mEq/l (22-31) Anion Gap 7 mEq/L mEq/L (6-14) BUN 17 mg/dL mg/dL (7-23) Creatinine 0.6 mg/dL mg/dL (0.6-1.0) Estimated GFR > 60 Glucose 90 mg/dL mg/dL (70-100) Calcium 9.0 mg/dL mg/dL (8.5-10.4) Total Bilirubin 0.3 mg/dL mg/dL (0.1-1.4) Urine Color Urine Appearance Urine pH Ur Specific [place] Urine Protein Urine Ketones Urine Blood Urine Nitrate Urine Bilirubin Urine Urobilinogen Ur Leukocyte Esterase Urine RBC Urine WBC Ur Epithelial Cells Urine Bacteria Urine Glucose Medications Given: Discontinued Medications Acetaminophen (Tylenol Rectal) 650 mg TX EDNOW ONE Stop: 03/29/18 16:03 Last Admin: 03/29/18 16:09 Dose: Not Given Sodium Chloride (Ns) 500 mls @ 0 mls/hr IV ONCE ONE; Wide Open PRN Reason: Protocol Stop: 03/29/18 13:05 Last Admin: 03/29/18 14:02 Dose: 500 mls Levofloxacin/Dextrose (Levaquin 750 Mg (Premix)) 150 mls @ 100 mls/hr IV EDNOW ONE PRN Reason: Protocol Stop: 03/29/18 17:06 Last Admin: 03/29/18 15:55 Dose: 150 mls Departure - Departure Disposition: Home, Routine, Self-Care Clinical Impression: Fever, Colorectal cancer, Hyponatremia, Urinary tract infection, Anemia, Leukocytosis (leucocytosis)
[2018-03-29] MEDS ORDERED: ACETAMINOPHEN 650 MG SUPP PR ONE (16:02)
[2018-03-29] MEDS ORDERED: ONDANSETRON 4 MG/2 ML VIAL IVP PRN (16:06)
[2018-03-29] MEDS ORDERED: ONDANSETRON DISINTEGRATING 4 MG TAB PO PRN (16:06)
[2018-03-29] MEDS ORDERED: HYDROCODONE/APAP 5/325 TAB PO PRN (16:06)
[2018-03-29] MEDS ORDERED: ACETAMINOPHEN 325 MG TAB PO PRN (16:06)
[2018-03-29] MEDS ORDERED: oxyCODONE IR 5 MG TAB PO PRN (16:06)
--- NOTE | 2018-03-29 16:13 | PDGENHP ---
History and Physical - Chief Complaint weakness, fever - History of Present Illness 72 yo female with a history of advanced rectal cancer with metastasis. She currently lives alone in a 3 story house. She has been ambulating with a walker but lately has become so weak that she has to crawl up her stairs. She presents to the emergency department with fever. The E.D. received a call from Dr. Malu Erazo due to concern for weakness and infection. The patient states that she has had some chronic back pain. She reports she has had some discomfort with urination and feel she has been running a fever as well. Currently getting chemotherapy. In the ER she is found to have SIRS criteria and likely urinary source. The pt has altered mentation. She does wake up. She is protecting her airway. she follows some commands. History is obtained from the pt, records, and from her friend and her sister. Past medical history: Hypertension, colorectal cancer with metastasis to the lungs currently on chemotherapy, tonsillectomy, x2, colon resection, vaginal rectal fissure, left ankle surgery. Social history: Lives alone. Family nearby and involved with her care. No alcohol. Nonsmoker. FmHx: non contributory Imaging: CT head without contrast: Age-related changes only. Right lower extremity Doppler ultrasound: Negative for DVT. Chest x-ray PA and lateral; the cardiac mediastinal silhouette is unremarkable. Mild ground-glass appearance in the upper lobes. Dominant left pulmonary nodule at the base. Smaller pulmonary nodules suspected. No evidence of infiltrate or pneumothorax. No acute cardiopulmonary disease process noted. History Information - Allergies/Home Medication List Allergies/Adverse Reactions: No Known Allergies Allergy (Verified 07/11/17 14:26) Home Medications: Atenolol [Tenormin 100 mg (*)] 100 mg PO DAILY 03/29/18 [Last Taken Unknown] Dexamethasone [Decadron 4 MG (*)] 4 mg PO BIDMEAL 03/29/18 [Last Taken Unknown] Eszopiclone 3 mg PO HS PRN 03/29/18 [Last Taken Unknown] HYDROmorphone HCL [Dilaudid 2 mg (*)] 2 mg PO Q3HRS PRN 03/29/18 [Last Taken Unknown] Ibuprofen [Motrin (*)] 600 mg PO Q6 PRN 03/29/18 [Last Taken Unknown] LORazepam [Ativan (*)] 1 mg PO Q6 PRN 03/29/18 [Last Taken Unknown] fentaNYL [Duragesic 12 MCG Patch (*)] 24 mcg TD Q72H 03/29/18 [Last Taken Unknown] I have personally reviewed and updated: medical history, social history - Social History Smoking Status: Former smoker Review of Systems Review of Systems: ROS: 10pt was reviewed & negative except for what was stated in HPI & below Physical Exam Physical Exam: Temp Pulse Resp BP Pulse Ox 38.7 C H 72 14 162/79 H 97 03/29/18 16:00 03/29/18 16:00 03/29/18 16:00 03/29/18 16:00 03/29/18 16:00 Constitutional: chronically ill appearing Eyes: EOMI Ears, Nose, Mouth, Throat: dry mucous membranes Cardiovascular: regular rate and rhythym, No edema Respiratory: no respiratory distress, reduced air movement, No expiratory wheeze , No rhonchi Gastrointestinal: normoactive bowel sounds, soft, non-tender abdomen Skin: warm Musculoskeletal: generalized weakness Neurologic: No AAOx3 Psychiatric: encephalopathic Lymph, Heme, Immunologic: No petechiae Lab Data & Imaging Review 03/29/18 13:35 03/29/18 13:35 WBC 15.69 10^3/uL (3.80-9.50) H 03/29/18 13:35 RBC 3.26 10^6/uL (4.18-5.33) L 03/29/18 13:35 Hgb 10.0 g/dL (12.6-16.3) L 03/29/18 13:35 Hct 29.9 % (38.0-47.0) L 03/29/18 13:35 MCV 91.7 fL (81.5-99.8) 03/29/18 13:35 MCH 30.7 pg (27.9-34.1) 03/29/18 13:35 MCHC 33.4 g/dL (32.4-36.7) 03/29/18 13:35 RDW 15.4 % (11.5-15.2) H 03/29/18 13:35 Plt Count 270 10^3/uL (150-400) 03/29/18 13:35 MPV 10.0 fL (8.7-11.7) 03/29/18 13:35 Neut % (Auto) 88.2 % (39.3-74.2) H 03/29/18 13:35 Lymph % (Auto) 4.7 % (15.0-45.0) L 03/29/18 13:35 Ulster % (Auto) 6.4 % (4.5-13.0) 03/29/18 13:35 Eos % (Auto) 0.1 % (0.6-7.6) L 03/29/18 13:35 Baso % (Auto) 0.1 % (0.3-1.7) L 03/29/18 13:35 Nucleat RBC Rel Count 0.0 % (0.0-0.2) 03/29/18 13:35 Absolute Neuts (auto) 13.84 10^3/uL (1.70-6.50) H 03/29/18 13:35 Absolute Lymphs (auto) 0.74 10^3/uL (1.00-3.00) L 03/29/18 13:35 Absolute Monos (auto) 1.00 10^3/uL (0.30-0.80) H 03/29/18 13:35 Absolute Eos (auto) 0.01 10^3/uL (0.03-0.40) L 03/29/18 13:35 Absolute Basos (auto) 0.02 10^3/uL (0.02-0.10) 03/29/18 13:35 Absolute Nucleated RBC 0.00 10^3/uL (0-0.01) 03/29/18 13:35 Immature Gran % 0.5 % (0.0-1.1) 03/29/18 13:35 Immature Gran # 0.08 10^3/uL (0.00-0.10) 03/29/18 13:35 PT 14.3 SEC (12.0-15.0) 03/29/18 13:35 INR 1.09 (0.83-1.16) 03/29/18 13:35 APTT 30.9 SEC (23.0-38.0) 03/29/18 13:35 VBG Lactic Acid 1.2 mmol/L (0.7-2.1) 03/29/18 13:30 Sodium 126 mEq/L (135-145) L 03/29/18 13:35 Potassium 4.2 mEq/L (3.3-5.0) 03/29/18 13:35 Chloride 96 mEq/L (97-110) L 03/29/18 13:35 Carbon Dioxide 23 mEq/l (22-31) 03/29/18 13:35 Anion Gap 7 mEq/L (6-14) 03/29/18 13:35 BUN 17 mg/dL (7-23) 03/29/18 13:35 Creatinine 0.6 mg/dL (0.6-1.0) 03/29/18 13:35 Estimated GFR > 60 03/29/18 13:35 Glucose 90 mg/dL (70-100) 03/29/18 13:35 Calcium 9.0 mg/dL (8.5-10.4) 03/29/18 13:35 Total Bilirubin 0.3 mg/dL (0.1-1.4) 03/29/18 13:35 Urine Color RAHEEM 03/29/18 14:45 Urine Appearance HAZY 03/29/18 14:45 Urine pH 5.0 (5.0-7.5) 03/29/18 14:45 Ur Specific Mayo 1.016 (1.002-1.030) 03/29/18 14:45 Urine Protein NEGATIVE (NEGATIVE) 03/29/18 14:45 Urine Ketones NEGATIVE (NEGATIVE) 03/29/18 14:45 Urine Blood 1+ (NEGATIVE) H 03/29/18 14:45 Urine Nitrate NEGATIVE (NEGATIVE) 03/29/18 14:45 Urine Bilirubin NEGATIVE (NEGATIVE) 03/29/18 14:45 Urine Urobilinogen NEGATIVE EU (0.2-1.0) 03/29/18 14:45 Ur Leukocyte Esterase 2+ (NEGATIVE) H 03/29/18 14:45 Urine RBC 5-10 /hpf (0-3) H 03/29/18 14:45 Urine WBC 25-50 /hpf (0-3) H 03/29/18 14:45 Ur Epithelial Cells NONE SEEN /lpf (NONE-1+) 03/29/18 14:45 Urine Bacteria 2+ /hpf (NONE SEEN) H 03/29/18 14:45 Urine Glucose 1+ (NEGATIVE) H 03/29/18 14:45 Assessment & Plan Assessment: #Possible Early Sepsis, SIRS criteria met (leukocytosis, fever, source of infection, urine) #UTI -pt's family report dysuria -UA c/w bacteruria #Fever #Dehydration #Weakness #Metastatic Colorectal Cancer #Hyponatremia, likely due to hypovolemia. She does have some low Na as of late and she may also have underlying SiADH #Acute Encephalopathy -etiology likely multifactorial due to pain meds, dehydration, infection -protecting her airway. -will not provide Narcan. Will d/c the Fentanyl patch. Provide pain meds PRN #Query Dysphagia and Aspiration. 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 She has only received a 500 ml bolus. She will receive another bolus now and then additional at 125ml/hr PT/OT consider hospice will order palliative care May be appropriate for hospice NPO Lovenox for DVT proph The ER reported that she is a DNR. We cannot find a MOST form. Staff will look for it. Her sister and her friend are reporting that she is Full Code. She is encephalopathic. We will change status to Full Code until this gets clarified. total critical care time spent on this pt with likely early sepsis, profound dehydration, and acute encephalopathy is 55 mins.
--- NOTE | 2018-03-29 16:18 | ASMTCASEMG ---
Living Arrangements What is your living Answers: Alone arrangement? Who do you live with? Type Of Residence What kind of residence do Answers: House you live in? Case Management Evaluation Functional: Able to Answers: No Notes: please see note return Home with Prior Level of Function/Care Functional: ADL / IADL Answers: Chronic Illness Performance Deficits Due to: Mobility Issues Education Needs Answers: Hospice Palliative Care Discharge Plan Comments Coordination Status Comments Notes: Pt in FED after recent changes in cognition and mobility. Pt. is accompanied by her sister Sepideh ([phone]) and long time friend Ro ([phone]).Pt. has two daughters one in [facility] and one in [place] that help as much as possible. Sepideh and Ro have Medical/POA. Pt has undergone regular chemotherapy for the last 4 years. She lives alone in a three level home with stairs and no bathroom on the main level. Sepideh and Poornima reported that they have taken turns trying to manage the pt.s care but they are feeling overwhelmed and fear for the pt's safety. The pt does not have home care services and often attempts to manage ADL by herself. Pt recently made the decision to discontinue chemotherapy treatments. Sepideh and Poornima made outreach to [facility] to begin paliative care; however, pt was informed of a new chemo treatment and told her doctor she would like to try it. Sepideh and Poornima expressed frustration with the pt's ongoing care including the pt's capacity to make medical decisions and her recent treatment at [facility]. Sepideh and Poornima would like an assessment for in home nursing care and hospice to be coordinated through [facility] prior to discharge. Referrals for in home hospice/nursing required. Full DC needs TBD CM to follow. Date Signed: 03/29/2018 04:17 PM Electronically Signed By:Jacinto Weaver LCSW
[2018-03-29] MEDS ORDERED: LORazepam 1 MG TAB PO PRN (17:47)
[2018-03-29] MEDS ORDERED: fentaNYL 12 MCG PATCH TD SCH (18:00)
[2018-03-29] MEDS ORDERED: ACETAMINOPHEN 650 MG/20.3 ML UDCUP ONE (18:00)
[2018-03-29] MEDS ORDERED: DEXAMETHASONE 4 MG TAB PO SCH (18:00)
[2018-03-29] MEDS ORDERED: ACETAMINOPHEN 650 MG/20.3 ML UDCUP PO PRN (18:01)
[2018-03-29] MEDS ORDERED: ZOLPIDEM TARTRATE 5 MG TAB PO PRN (18:28)
[2018-03-29] MEDS: DEXAMETHASONE 4 MG/ML VIAL IVP SCH (21:00)
[2018-03-29] MEDS: NS 1,000 ML IV SCH (21:00)
[2018-03-30] MEDS: NS 1,000 ML IV SCH ×2 (02:49→12:01)
[2018-03-30 04:25] LABS: PLATELET COUNT 237 10^3/uL (150-400)
[2018-03-30] MEDS ORDERED: levOFLOXACIN 500 MG/DEXTROSE 100 ML IV SCH (09:00)
[2018-03-30] MEDS ORDERED: ATENOLOL 100 MG TAB PO SCH (09:00)
--- NOTE | 2018-03-30 09:24 | HOSPPROG ---
Hospitalist Progress Note Assessment/Plan: # sepsis (fever, leukocytosis, bacteremia) # enterococcus bacteremia, sens pending - suspect urinary source, but also has significant abd pathology - change abx to vanc, ID consult (discussed with Dr Pat) - check CT abd/pelvis # metastatic colorectal cancer - considering a new PO chemo option, has also discussed palliative care # R ureteral obstruction s/p stent placed by IR - may need urology evaluation # urinary retention - suspect neurogenic, she reports a recent sacral embolization, also recently had a caudal epidural injection - may need urology eval # ostomy - no output # R hip fracture, pathologic - non-operative per report - causes significant pain and debility # metabolic encephalopathy - better today # abnormal CXR - not clinically significant at this point # dvt ppx - lovenox # DNR Subjective: no ostomy output for a day; unable to make urine; no significant abd pain Objective: Vital Signs Temp Pulse Resp BP Pulse Ox 36.6 C 59 L 18 149/77 H 100 03/30/18 03:56 03/30/18 03:56 03/30/18 03:56 03/30/18 03:56 03/30/18 03:56 Laboratory Results 03/30/18 04:18 03/30/18 04:18 03/29/18 03/30/18 03/31/18 05:59 05:59 05:59 Intake Total 1306 Balance 1306 PT 14.3 SEC (12.0-15.0) 03/29/18 13:35 INR 1.09 (0.83-1.16) 03/29/18 13:35 - Physical Exam Constitutional: not in pain (lying in bed) Cardiovascular: regular rate and rhythym, no murmur, rub, or gallop Respiratory: no respiratory distress, no rales or rhonchi, clear to auscultation Gastrointestinal: soft, non-tender abdomen, distension (mild), other (ostomy with no output) ICD10 Worksheet Patient Problems: Problems Problem Status Onset Anemia Acute Colorectal cancer Acute Fever Acute Hyponatremia Acute Leukocytosis (leucocytosis) Acute Urinary tract infection Acute MRSA (methicillin resistant Staphylococcus aureus) Acute 06/03/15 Rectal adenocarcinoma Acute
[2018-03-30] MEDS: VANCOMYCIN 750 MG in D5W 150 ML IV SCH ×2 (10:10→21:27)
[2018-03-30] MEDS: DEXAMETHASONE 4 MG/ML VIAL IVP SCH ×2 (10:14→21:27)
[2018-03-30] MEDS: ENOXAPARIN 40 MG/0.4 ML SYR SC SCH (10:16)
--- NOTE | 2018-03-30 11:35 | PDMN ---
Medical Necessity Medical necessity: Pt meets IP criteria per & MCG M-160; est los >2 mn for eval/tx of sepsis w/fever, leukocytosis, acute encephalopathy, bacteremia & profound dehydration/weakness; suspected urinary source; query dysphagia/ aspiration; requiring further workup/monitoring, NPO status, ID/Palliative consults, IV abx, IVFs & therapies; hx metastatic colorectal cancer; per IP order 03/29/18
[2018-03-30] MEDS ORDERED: IOPAMIDOL (ISOVUE-300) 100 ML BTL ONE ×2 (13:22→16:10)
--- NOTE | 2018-03-30 13:54 | ASMTCMCOM ---
CM Note CM Note Notes: Patient plan of care reviewed in am rounds. Likely not able to return to current situations without more support. See nte below. Mobility and cognition compromised. Awaiting therapy recommendations. CM to follow for needs. Plan: TBD Pt in FED after recent changes in cognition and mobility. Pt. is accompanied by her sister Sepideh ([phone]) and long time friend Ro ([phone]).Pt. has two daughters one in [facility] and one in [place] that help as much as possible. Sepideh and Ro have Medical/POA. Pt has undergone regular chemotherapy for the last 4 years. She lives alone in a three level home with stairs and no bathroom on the main level. Sepideh and Poornima reported that they have taken turns trying to manage the pt.s care but they are feeling overwhelmed and fear for the pt's safety. The pt does not have home care services and often attempts to manage ADL by herself. Pt recently made the decision to discontinue chemotherapy treatments. Sepideh and Poornima made outreach to [facility] to begin paliative care; however, pt was informed of a new chemo treatment and told her doctor she would like to try it. Sepideh and Poornima expressed frustration with the pt's ongoing care including the pt's capacity to make medical decisions and her recent treatment at [facility]. Sepideh and Poornima would like an assessment for in home nursing care and hospice to be coordinated through [facility] prior to discharge. Referrals for in home hospice/nursing required. Full DC needs TBD CM to follow. Date Signed: 03/30/2018 01:43 PM Electronically Signed By:Gladis Marie RN
[2018-03-30] MEDS ORDERED: LIDOCAINE 1% 300 MG/30 ML SDV ONE (16:10)
[2018-03-30] MEDS ORDERED: MEPERIDINE 25 MG/ML SYR IVP PRN (16:20)
[2018-03-30] MEDS ORDERED: NALOXONE HCL 0.4 MG/ML INJ IVP PRN (16:20)
[2018-03-30] MEDS ORDERED: fentaNYL 100 MCG/2 ML INJ IVP PRN (16:20)
[2018-03-30] MEDS ORDERED: fentaNYL 100 MCG/2 ML INJ ONE (16:24)
[2018-03-30] MEDS ORDERED: NALOXONE HCL 0.4 MG/ML INJ ONE (16:24)
[2018-03-30] MEDS ORDERED: NS 1,000 ML IV SCH (16:30)
--- NOTE | 2018-03-30 19:30 | GCON ---
INPATIENT INFECTIOUS DISEASE CONSULTATION REFERRING PHYSICIAN: Jeremy Prado MD REASON FOR REFERRAL: Enterococcal bacteremia. HISTORY OF PRESENT ILLNESS: Patient is a 72-year-old female who was admitted to [facility] on 03/29/18 with concerns for weakness and fever. Patient does have known advanced rectal cance r with multiple metastases. Patient was evaluated in the emergency room and met criteria for possibl e early sepsis. She was given Levaquin in the emergency room and hydrated with normal saline. Blood cultures that were drawn on 03/29 grew 1 set out of 2 enterococcus species. She was changed to vanc omycin today upon my suggestion. Prior enterococcal isolates for this patient have been ampicillin s ensitive. Currently, the patient is resting comfortably in her hospital bed. She states that she fe els better than she did yesterday. Most of the interview revolved around her discomfort with how her pelvic and hip pain has been handled in recent months. She denies any ongoing fevers. She states t hat she is significantly weaker than her baseline, however. PAST MEDICAL HISTORY: 1. Advanced rectal cancer. Multiple metastases. 2. Hypertension. PAST SURGICAL HISTORY: 1. Status post ostomy placement. 2. Status post colon resection. 3. Status post section x2. 4. Status post tonsillectomy. 5. Status post left ankle surgery. ANTIBIOTICS: Vancomycin. ALLERGIES: No known drug allergies. SOCIAL HISTORY: Patient lives independently. Family is actively involved and nearby. She denies an y tobacco, alcohol, or drug use. FAMILY HISTORY: Reviewed but noncontributory. REVIEW OF SYSTEMS: Other than that detailed above in History of Present Illness, comprehensive 10-sy stem review is negative. PHYSICAL EXAMINATION: VITAL SIGNS: Temperature maximum is 38.7; temperature current is 36.6. Heart rate is 59. Respiratory rate is 16. Blood pressure is 125/68. GENERAL: Patient is a well-formed, thin, chronically ill-appearing, older female in no acute distress. She is not toxic in appearance. She is alert and oriented x3. She has a pleasant demeanor. HEENT: Normocephalic for age. Atraum atic. No scleral icterus. No oral lesion or drainage from the nares. Eyes, lids, and conjunctivae are within normal limits. Pupils are equal and round bilaterally. NECK: Supple. No meningismus. LUNGS: Clear to auscultation bilaterally, with good effort. HEART: Regular rate and rhythm. No si gnificant peripheral edema. SKIN: Warm and dry to the touch. No rashes or lesions. MUSCULOSKELETA L: No muscle belly tenderness is noted. No joint line effusion or arthritis is seen. NEURO: Crani al nerves 2-12 seem to be intact. Peripheral sensation seems intact in extremities. LABORATORY DATA: Patient has a CBC dated 03/30/18, shows a white blood cell count of 11.7, hemoglobi n of 10.2, hematocrit of 30.0, and a platelet count of 237. Differential is left shifted with 93% se gmented neutrophils. Serum chemistries on 03/30/18 show sodium of 131, potassium of 4.2, chloride of 101, bicarbonate of 22, BUN of 16, and creatinine of 0.7. Urinalysis on 03/29/18 shows 25-50 white cells per high-power field. MICROBIOLOGIC DATA: Patient has blood cultures dated 03/29/18. 1 out of 2 sets are growing an enter ococcus species as identified by BCID PCR panel. Urine culture dated 03/29/18 is growing a single un identified colony type of greater than 100,000 CFUs. ASSESSMENT: Enterococcal bacteremia in patient with significant pelvic and abdominal compartment met astases of colorectal cancer. History of ureteral obstruction in the past. Suspect that this is a u rinary source for her enterococcus. At this point, we will change her over to vancomycin 750 mg intr avenous q.12 hours. We will check a vancomycin trough prior to the 4th dose. We will adjust as necjavon reyes. PLAN: 1. Continue vancomycin 750 mg IV q.12 hours. 2. Follow up on blood culture and sensitivity data. 3. Follow her clinical course. 4. Check vancomycin trough prior to 4th dose. /[id number]/MODL
--- NOTE | 2018-03-30 20:18 | PDCONSULT ---
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 Patient was initially diagnosed in December 2014 in the setting of significant weight loss and a rectovaginal fistula. 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 Her initial presentation was accompanied by right hydronephrosis. She required a diverting colostomy however this was complicated by retraction the ostomy into the abdominal wall with subsequent fecal peritonitis. She also required right ureteral stent placement which was requiring placement every 3-4 months. She started on FOLFOX in January 2015. She was off and on oxaliplatin up until oxaliplatin was discontinued in February 2017. She also had multiple rounds of radiation to pelvic/sacral disease. This almost certainly resulted in bilateral sacral insufficiency fractures in May 2017. She was started on FOLFIRI :in October 2017 with subsequent progression of disease in February 2018. She most recently met with Dr. Miller in March 2018 at that time they decided to move forward with Cesar. She presented to the emergency room today mainly out of concerns given her stoma had prolapsed through her ostomy. She also reported fever. In the ER she was found to be febrile with a temperature of 38 8 on initial blood cultures from 03/29/2018 showed gram-positive cocci in chains were subsequently speciated as Enterococcus faecalis. Urine culture from 03/29/2018 also showed Enterococcus faecalis. Of note patient reports that recently she has had difficulties with urinary retention which occurred after microwave ablation of left sacral mass as well as a caudal nerve block in March 2018. On admission she was found to be retaining 1200 cc of urine. Past medical history Rectal cancer as above Hypertension Past surgical history: Right ureteral stent placement Social history: No significant history of alcohol drugs or tobacco Family history: Patient denies family history of cancer Review of systems: A complete 12 point review of systems was obtained and found to be negative unless indicated in history of present illness Physical examination: General: No apparent distress nontoxic appearing female HEENT: Pupils equal round and reactive to light no scleral icterus or conjunctival pallor is appreciated oral mucosa with thrush Neck: Supple Cardiovascular: Regular rate and rhythm without rubs thrills gallops or murmurs Chest: Clear to auscultation percussion bilateral posterior lungs Abdomen: Soft nontender nondistended without any hepatosplenomegaly mid abdominal right stoma with colostomy bag in place Extremities: Warm and well perfused 2+ dorsalis pedis and radial pulses bilaterally no lower extremity edema Neurologic: Cranial nerves II through XII are intact Medications and allergies reviewed in the electronic medical record Laboratory studies and imaging reports are reviewed in the electronic medical record Assessment and plan: Patient is a 72-year-old female with a history of metastatic rectal carcinoma with significant morbidity to the pelvis due to extensive local therapy who presents with sepsis and bacteremia from a urinary tract infection in the setting of urinary retention. Problem #1 - Sepsis from a urinary tract infection with enterococcus bacteremia Agree with involvement of infectious disease given bacteremia complex anatomy and history of multidrug resistant organisms. Recommend continued straight catheterization and antibiotics. Problem #2 - Metastatic rectal cancer Despite patient's microwave ablation of the left sacral mass and caudal nerve block she continues have significant pain. She also has ongoing debility secondary to the sacral insufficiency fractures. She has progressed on both FOLFOX and FOLFIRI and is currently on last line Lonsurf. We did discuss her goals of therapy especially in context of her acute illness. Jonas Escalona
[2018-03-30] MEDS ORDERED: MIDAZOLAM 2 MG/2 ML VIAL ONE (21:53)
[2018-03-30] MEDS ORDERED: PHENYLEPHRINE HCL 100 MCG/ML SYR ONE (22:03)
[2018-03-30] MEDS ORDERED: SUCCINYLCHOLINE CHLORIDE 200 MG/10 ML SYR IVP ONE (22:03)
[2018-03-30] MEDS ORDERED: ceFAZolin 1 GM VIAL ONE (22:08)
[2018-03-30] MEDS ORDERED: ONDANSETRON 4 MG/2 ML VIAL ONE (22:25)
[2018-03-30] MEDS ORDERED: SUGAMMADEX SODIUM 200 MG/2 ML VIAL IVP ONE (22:53)
[2018-03-30] MEDS ORDERED: METOCLOPRAMIDE 10 MG/2 ML VIAL ONE (23:01)
[2018-03-31 03:38] LABS: PLATELET COUNT 239 10^3/uL (150-400)
[2018-03-31] MEDS: NYSTATIN SUSP 500000 UNIT/5 ML UD LIQ PO SCH ×4 (05:25→21:35)
[2018-03-31] MEDS: DEXAMETHASONE 4 MG/ML VIAL IVP SCH (08:39)
[2018-03-31] MEDS: VANCOMYCIN 750 MG in D5W 150 ML IV SCH ×2 (09:59→21:34)
[2018-03-31] MEDS ORDERED: HYDROmorphONE/DILAUDID 2 MG TAB PO PRN (10:14)
--- NOTE | 2018-03-31 11:01 | SOAPPROG ---
SOAP Progress Note Assessment/Plan: Assessment/plan: 72 y/o F with advanced rectal CA, rectovaginal fistula. S/p colostomy. Admitted with sepsis with urine being source S/p nephrostomy tube placement S: Feeling well today. Denies fever and chills. Ostomy was not putting anything out yesterday, but she did start to pass stool last night without pain. Would like to go home. O: Alert Afebrile No increased WOB Abdomen: soft, nontender, ostomy appears pink with soft brown stool in appliance. : Trotter with clear yellow urine 03/31/18 10:58 Objective: Vital Signs Temp Pulse Resp BP Pulse Ox 36.8 C 68 17 134/74 H 97 03/31/18 10:03 03/31/18 10:03 03/31/18 10:03 03/31/18 10:03 03/31/18 10:03 Microbiology 03/30/18 17:03 Gram Stain - Final Other - Other Laboratory Results 03/31/18 03:30 03/31/18 03:30 03/30/18 03/31/18 04/01/18 05:59 05:59 05:59 Intake Total 1306 1689 Output Total 2300 Balance 1306 -611 PT 14.3 SEC (12.0-15.0) 03/29/18 13:35 INR 1.09 (0.83-1.16) 03/29/18 13:35 ICD10 Worksheet Patient Problems: Problems Problem Status Onset Anemia Acute Colorectal cancer Acute Fever Acute Hyponatremia Acute Leukocytosis (leucocytosis) Acute Urinary tract infection Acute MRSA (methicillin resistant Staphylococcus aureus) Acute 06/03/15 Rectal adenocarcinoma Acute
[2018-03-31] MEDS: ENOXAPARIN 40 MG/0.4 ML SYR SC SCH (12:27)
[2018-03-31] MEDS: LIDOCAINE 4%/MENTHOL 1% PATCH TD SCH (13:23)
--- NOTE | 2018-03-31 13:50 | ASMTCMCOM ---
CM Note CM Note Notes: Spoke with pt regarding home care choice. She has had [facility] in the past and would like again. Sent referral via [facility] and left message. RN/PT/OT/GROCERY TEAM MEMBER. Pt will continue with [facility] but limit visits while [facility] is providing her services. CM will continue to follow. Date Signed: 03/31/2018 01:50 PM Electronically Signed By:NORAH Hollis
--- NOTE | 2018-03-31 14:08 | SOAPPROG ---
SOAP Progress Note Assessment/Plan: Assessment: Neha is well known to me. I asked her to go to the ER yesterday after she arrived at my office febrile and somewhat confused. In the office, her ostomy was swollen with little output CT showed showed prolapse of distal bowel today ostomy is small with a lot of stool in the bag I had a nice conversation with Neha about her goals. Surgery will follow peripheral Plan: 03/31/18 14:05 Objective: Vital Signs Temp Pulse Resp BP Pulse Ox 36.6 C 67 16 139/73 H 94 03/31/18 12:00 03/31/18 12:00 03/31/18 12:00 03/31/18 12:00 03/31/18 12:00 Microbiology 03/30/18 17:03 Gram Stain - Final Other - Other Laboratory Results 03/31/18 03:30 03/31/18 03:30 03/30/18 03/31/18 04/01/18 05:59 05:59 05:59 Intake Total 1306 1689 Output Total 2300 Balance 1306 -611 PT 14.3 SEC (12.0-15.0) 03/29/18 13:35 INR 1.09 (0.83-1.16) 03/29/18 13:35 ICD10 Worksheet Patient Problems: Problems Problem Status Onset Anemia Acute Colorectal cancer Acute Fever Acute Hyponatremia Acute Leukocytosis (leucocytosis) Acute Urinary tract infection Acute MRSA (methicillin resistant Staphylococcus aureus) Acute 06/03/15 Rectal adenocarcinoma Acute
[2018-03-31] MEDS: ACETAMINOPHEN 500 MG TAB PO SCH ×2 (14:14→21:35)
[2018-03-31] MEDS: DEXAMETHASONE 4 MG TAB PO SCH (14:15)
[2018-03-31] MEDS: HYDROmorphONE/DILAUDID 2 MG TAB PO PRN ×2 (14:16→21:48)
[2018-03-31] MEDS: NS 1,000 ML IV SCH (14:48)
--- NOTE | 2018-03-31 15:42 | HOSPPROG ---
Hospitalist Progress Note Assessment/Plan: # sepsis (fever, leukocytosis, bacteremia) # enterococcus bacteremia, sens pending - urinary source - cont vanc - repeat BCx per ID # severe R hydro - s/p perc neph last night with clear urine - unclear if stent is truly obstructed (antegrade nephrostogram not undertaken given bladder with contrast) - hydro could also be from urinary retention # urinary retention - suspect neurogenic, she reports a recent sacral embolization, also recently had a caudal epidural injection - spann placed # metastatic colorectal cancer - considering a new PO chemo option, has also discussed palliative care - she clearly understands her condition # ostomy with prolapsed large bowel - reduced and now functional # R hip fracture, pathologic - non-operative per report - causes significant pain and debility # metabolic encephalopathy - resolved # abnormal CXR - not clinically significant at this point # dvt ppx - lovenox # DNR Subjective: we discussed her overall cancer care over the past few years with her friend; she is overall feeling better; she had a R sided perc neph placed yesterday Objective: Vital Signs Temp Pulse Resp BP Pulse Ox 36.6 C 67 16 139/73 H 94 03/31/18 12:00 03/31/18 12:00 03/31/18 12:00 03/31/18 12:00 03/31/18 12:00 Microbiology 03/30/18 17:03 Mycobacterial Smear (TUCKER) - Final Other - Other 03/30/18 17:03 Gram Stain - Final Other - Other Laboratory Results 03/31/18 03:30 03/31/18 03:30 03/30/18 03/31/18 04/01/18 05:59 05:59 05:59 Intake Total 1306 1689 Output Total 2300 300 Balance 1306 -611 -300 PT 14.3 SEC (12.0-15.0) 03/29/18 13:35 INR 1.09 (0.83-1.16) 03/29/18 13:35 - Time Spent With Patient Time Spent with Patient: greater than 35 minutes Time Spent with Patient: Greater than 35 minutes spent on this patients care, greater than 50% of time spent counseling, educating, and coordinating care regarding the above mentioned plan. - Physical Exam Constitutional: no apparent distress, appears nourished ICD10 Worksheet Patient Problems: Problems Problem Status Onset Hyponatremia Acute Rectal adenocarcinoma Acute MRSA (methicillin resistant Staphylococcus aureus) Acute 06/03/15 Fever Acute Colorectal cancer Acute Urinary tract infection Acute Anemia Acute Leukocytosis (leucocytosis) Acute
[2018-03-31] MEDS: CALCIUM CARBONATE 500 MG CHEWABLE TAB PO PRN (16:01)
--- NOTE | 2018-03-31 16:16 | PCMIDPN ---
Assessment/Plan: 1. Enterococcus faecalis bacteremia secondary to urinary source: Needs repeat blood cultures; unclear if previous cultures drawn from her port, although the port itself looks fine. Hopefully will be amp susceptible Enterococcus, so can switch her to continuous infusion therapy, to complete 10 days. Will need right ureteral stent changed on Monday, and this was conveyed to patient. Check liver function tests for completeness, as well as vancomycin trough in the morning. 2. Oral candidiasis: On nystatin. Case discussed with . 03/31/18 16:18 Subjective: In a good mood in spite of everything. Status post nephrostomy tube on right side for right hydronephrosis. Wants to go home as soon as possible. Objective: Vancomycin 750 mg IV q.12 hours day 1 No fevers Vital Signs Temp Pulse Resp BP Pulse Ox 36.6 C 67 16 139/73 H 94 03/31/18 12:00 03/31/18 12:00 03/31/18 12:00 03/31/18 12:00 03/31/18 12:00 Microbiology 03/30/18 17:03 Mycobacterial Smear (TUCKER) - Final Other - Other 03/30/18 17:03 Gram Stain - Final Other - Other Laboratory Results 03/31/18 03:30 03/31/18 03:30 03/30/18 03/31/18 04/01/18 05:59 05:59 05:59 Intake Total 1306 1689 Output Total 2300 300 Balance 1306 -611 -300 Blood cultures March 29 Enterococcus faecalis, unclear draw site Urine 10 to 5th Enterococcus species - Physical Exam General Appearance: alert, no apparent distress EENT: thrush Respiratory: lungs clear Cardiac/Chest: regular rate, rhythm, other (Port in left chest clean, dry, without tenderness or erythema) Abdomen: non-tender, other (Ostomy in place) Back: other (Right nephrostomy tube in place) Skin: No rash, No embolic lesions ICD10 Worksheet Patient Problems: Problems Problem Status Onset Anemia Acute Colorectal cancer Acute Fever Acute Hyponatremia Acute Leukocytosis (leucocytosis) Acute Urinary tract infection Acute MRSA (methicillin resistant Staphylococcus aureus) Acute 06/03/15 Rectal adenocarcinoma Acute
[2018-03-31] MEDS: ATENOLOL 50 MG TAB PO SCH (17:03)
[2018-03-31] MEDS: fentaNYL 25 MCG PATCH TD SCH (17:10)
[2018-03-31] MEDS: LOPERAMIDE HCL 2 MG CAP PO PRN ×2 (21:34→21:35)
[2018-03-31] MEDS: PATCH REMOVAL 1 EA PATCH TD SCH (21:44)
[2018-03-31] MEDS: DIAZEPAM 2 MG TAB PO PRN (21:47)
[2018-04-01] MEDS: NYSTATIN SUSP 500000 UNIT/5 ML UD LIQ PO SCH ×4 (06:31→20:28)
[2018-04-01] MEDS: ACETAMINOPHEN 500 MG TAB PO SCH ×3 (06:31→23:41)
[2018-04-01] MEDS: ATENOLOL 50 MG TAB PO SCH (09:47)
[2018-04-01] MEDS: HYDROmorphONE/DILAUDID 2 MG TAB PO SCH (09:47)
[2018-04-01] MEDS: DEXAMETHASONE 4 MG TAB PO SCH ×2 (09:47→15:13)
[2018-04-01] MEDS: ENOXAPARIN 40 MG/0.4 ML SYR SC SCH (09:48)
[2018-04-01] MEDS: LIDOCAINE 4%/MENTHOL 1% PATCH TD SCH (09:48)
[2018-04-01] MEDS: VANCOMYCIN 750 MG in D5W 150 ML IV SCH (10:53)
--- NOTE | 2018-04-01 11:30 | SOAPPROG ---
GEO Progress Note Assessment/Plan: Assessment: 1. Recurrent rectal cancer 2. Enterococcal sepsis 3. Pain related to hip arthritis/avascular necrosis/sacral insufficiency fractures. Overall she seems to be doing better and her attitude remains quite amazing. I think she understands that these are very significant issues, and her prognosis is not good. Plan:Antibiotics per infectious disease, ureteral stent change tomorrow. 04/01/18 11:26 Subjective: She feels okay pain under some control Objective: Vital Signs Temp Pulse Resp BP Pulse Ox 98.1 F 53 L 18 154/84 H 96 04/01/18 07:58 04/01/18 07:58 04/01/18 07:58 04/01/18 07:58 04/01/18 07:58 Microbiology 03/30/18 17:03 Gram Stain - Final Other - Other 03/30/18 17:03 Mycobacterial Smear (TUCKER) - Final Other - Other Laboratory Results 03/31/18 03:30 04/01/18 09:00 03/31/18 04/01/18 04/02/18 05:59 05:59 05:59 Intake Total 1689 1300 Output Total 2300 1400 Balance -611 -100 PT 14.3 SEC (12.0-15.0) 03/29/18 13:35 INR 1.09 (0.83-1.16) 03/29/18 13:35 ICD10 Worksheet Patient Problems: Problems Problem Status Onset Anemia Acute Colorectal cancer Acute Fever Acute Hyponatremia Acute Leukocytosis (leucocytosis) Acute Urinary tract infection Acute MRSA (methicillin resistant Staphylococcus aureus) Acute 06/03/15 Rectal adenocarcinoma Acute
--- NOTE | 2018-04-01 12:59 | HOSPPROG ---
Hospitalist Progress Note Assessment/Plan: # sepsis (fever, leukocytosis, bacteremia) # enterococcus bacteremia, sens to ampicillin; urinary source - repeat BCx per ID # severe R hydro - s/p perc neph last night with clear urine - this either represents ureteral stent obstruction or is d/t bladder retention; discussed with Dr Fernandes and he favors bladder retention - antegrade nephrogram not done given iv contrast in bladder when perc neph placed - plan to remove ureteral stent tomorrow; home with perc neph; could have stent replaced and perc neph removed in 1-2 weeks - she will follow up with dr fernandes as outpatient - he agrees with current management # urinary retention - suspect neurogenic with recent sacral embolization and recent caudal epidural injection - home with spann, f/u dr fernandes # metastatic colorectal cancer - considering a new PO chemo option, has also discussed palliative care - she clearly understands her condition # ostomy with prolapsed large bowel - reduced and now functional # R hip fracture, pathologic - non-operative - causes significant pain and debility - have restarted home fentanyl patch, home dilaudid as well as Lidoderm patch # metabolic encephalopathy - resolved # abnormal CXR - not clinically significant at this point # dvt ppx - lovenox # DNR # dispo - tomorrow; plan to have ureteral stent removed and assure that repeat BCx NGTD; will need home abx, planning for ampicillin via elastomeric pump Subjective: feels well today; has loose ostomy output Objective: Vital Signs Temp Pulse Resp BP Pulse Ox 36.7 C 53 L 18 154/84 H 96 04/01/18 07:58 04/01/18 07:58 04/01/18 07:58 04/01/18 07:58 04/01/18 07:58 Microbiology 03/30/18 17:03 Gram Stain - Final Other - Other 03/30/18 17:03 Mycobacterial Smear (TUCKER) - Final Other - Other Laboratory Results 03/31/18 03:30 04/01/18 09:00 03/31/18 04/01/18 04/02/18 05:59 05:59 05:59 Intake Total 1689 1300 Output Total 2300 1400 Balance -611 -100 PT 14.3 SEC (12.0-15.0) 03/29/18 13:35 INR 1.09 (0.83-1.16) 03/29/18 13:35 high risk - Physical Exam Constitutional: chronically ill appearing Cardiovascular: regular rate and rhythym, no murmur, rub, or gallop Respiratory: no respiratory distress, no rales or rhonchi, reduced air movement Gastrointestinal: soft, non-tender abdomen, no palpable masses, other (ostomy) ICD10 Worksheet Patient Problems: Problems Problem Status Onset Hyponatremia Acute Rectal adenocarcinoma Acute MRSA (methicillin resistant Staphylococcus aureus) Acute 06/03/15 Fever Acute Colorectal cancer Acute Urinary tract infection Acute Anemia Acute Leukocytosis (leucocytosis) Acute
[2018-04-01] MEDS: HYDROmorphONE/DILAUDID 2 MG TAB PO PRN ×2 (15:12→18:19)
--- NOTE | 2018-04-01 15:15 | PCMIDPN ---
Assessment/Plan: 1. Enterococcus faecalis bacteremia secondary to urinary source: Repeat blood cultures are pending. As per my note yesterday, do not feel port is involved. Given ampicillin susceptibility, will start ampicillin 2 g IV q.6 hours (I am fine with this dose and not the Q 4 hr dose) with plans on continuous infusion ampicillin as an outpatient, 8 g daily to complete 10 days of therapy, stop date April 09. Will have stent replaced tomorrow. 2. Oral candidiasis: On nystatin. Subjective: Having some mild discomfort, otherwise cannot wait to get out of here. Objective: Vancomycin 750 mg IV q.12 hours day 2 Afebrile Vital Signs Temp Pulse Resp BP Pulse Ox 36.7 C 53 L 18 154/84 H 96 04/01/18 07:58 04/01/18 07:58 04/01/18 07:58 04/01/18 07:58 04/01/18 07:58 Microbiology 03/30/18 17:03 Gram Stain - Final Other - Other 03/30/18 17:03 Mycobacterial Smear (TUCKER) - Final Other - Other Laboratory Results 03/31/18 03:30 04/01/18 09:00 03/31/18 04/01/18 04/02/18 05:59 05:59 05:59 Intake Total 1689 1300 Output Total 2300 1400 600 Balance -611 -100 -600 Blood cultures March 31 no growth so far Blood cultures March 29 with Enterococcus faecalis, ampicillin TUCKER 1, vancomycin TUCKER 1 Urine a nephrostomy culture with enterococcus faecalis - Physical Exam General Appearance: alert EENT: other (Small white patches posterior oropharynx consistent with oral candidiasis, improved compared with yesterday), No pharynx normal Cardiac/Chest: other (Port left chest looks fine with no tenderness or erythema) Skin: No rash, No embolic lesions ICD10 Worksheet Patient Problems: Problems Problem Status Onset Anemia Acute Colorectal cancer Acute Fever Acute Hyponatremia Acute Leukocytosis (leucocytosis) Acute Urinary tract infection Acute MRSA (methicillin resistant Staphylococcus aureus) Acute 06/03/15 Rectal adenocarcinoma Acute
--- NOTE | 2018-04-01 15:17 | PDIAF ---
- Diagnosis Diagnosis: Bacteremia secondary to urinary source Code Status: Do Not Resuscitate - Medication Management Volunteer Coordinator Antibiotics: Ampicillin 8 g per 24 hr Volunteer Coordinator Antibiotic Stop Date: 04/09/18 Discharge Medications: electronically signed and located in the Home Medication List. PICC Care - Routine: N/A - Orders Services needed: Home Longterm Care Face to Face: I certify that this patient was under my care and that I had the required [id number] encounter meeting the encounter requirements on the discharge day. My findings support the fact that the patient is homebound as defined in Home Care Face to Face Continued: CMS Chapter 7 Medicare Benefits Manual 30.1.1 , The condition of the patient is such that there exists a normal inability to leave home and consequently, leaving home would require a considerable and taxing effort. Isolation Type: None Diet Texture: Regular Texture Diet, Thin Liquids, Meds Whole w/Liquids - Labs/Radiology [facility] Date: 04/05/18 (Please fax to Dr. Pat [phone]) - Follow Up Care Current Providers and Referrals: Cecilia Mcdermott MD [Primary Care Provider] - As per Instructions Vahid Pat MD [Medical Doctor] - ([facility] will call patient for follow- up)
[2018-04-01] MEDS: AMPICILLIN SODIUM 2 GM in NS 100 ML IV SCH ×2 (18:53→23:41)
[2018-04-01] MEDS: DIAZEPAM 2 MG TAB PO PRN (20:56)
[2018-04-01] MEDS: PATCH REMOVAL 1 EA PATCH TD SCH (21:03)
[2018-04-02] MEDS: HYDROmorphONE/DILAUDID 2 MG TAB PO PRN ×5 (04:29→23:34)
[2018-04-02] MEDS: DIAZEPAM 2 MG TAB PO PRN (04:42)
[2018-04-02] MEDS: DEXAMETHASONE 4 MG TAB PO PRN (04:43)
[2018-04-02 04:56] LABS: PLATELET COUNT 221 10^3/uL (150-400)
[2018-04-02] MEDS: AMPICILLIN SODIUM 2 GM in NS 100 ML IV SCH ×4 (05:55→23:34)
[2018-04-02] MEDS: NYSTATIN SUSP 500000 UNIT/5 ML UD LIQ PO SCH ×4 (05:55→20:59)
[2018-04-02] MEDS: ACETAMINOPHEN 500 MG TAB PO SCH ×3 (05:55→21:00)
[2018-04-02] MEDS: LIDOCAINE 4%/MENTHOL 1% PATCH TD SCH (09:48)
[2018-04-02] MEDS: ATENOLOL 50 MG TAB PO SCH (09:48)
[2018-04-02] MEDS: HYDROmorphONE/DILAUDID 2 MG TAB PO SCH (09:48)
[2018-04-02] MEDS: DEXAMETHASONE 4 MG TAB PO SCH ×2 (09:49→14:38)
[2018-04-02] MEDS: ENOXAPARIN 40 MG/0.4 ML SYR SC SCH (09:49)
[2018-04-02] MEDS ORDERED: IOPAMIDOL (ISOVUE-300) 100 ML BTL ONE (14:14)
--- NOTE | 2018-04-02 15:37 | PDPCPN ---
Palliative Care Progress Note Assessment/Plan: Assessment: [facility] [address] [place] [id number] (O) [phone](F) PALLIATIVE CARE NOTE Name: Sandra Abernathy Age: 72 yo. Visit Type: Follow-up hospital palliative visit Location: [facility] Date: 04/02/2018 Level of Care: DIAGNOSES: 1. 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 Malignant neoplasm of intrahepatic bile duct 3. Malignant neoplasm of bone- bilateral hips/sacrum CC: Initial Palliative Visit. HPI: Sandra is a 72 year-old female referred to [facility] care by [facility]. In December 2014, patient had presented with significant weight loss and a rectovaginal fistula. She was found to have locally advanced Adenosquameous cell carcinoma at the Anorectal junction. She has undergone Palliative radiotherapy in February 2016 and May 2016 to the sacrum and pelvis. Chemotherapy treatments have included Foifox as initial treatment. Oxaliplatin was discontinued June 2015. Patient was then trialed on Folfini in October 2017 as second line treatment. Current treatment is maintenance with 5FU and leucovorin. This has now been discontinued. Scans showed liver metastasis had decreased with treatment, but positive progressive disease in her bilateral sacrum. She has been on and off Oxaliplatin due to neuropathy. She suffered a sacral fracture in May 2017, underwent a sacroplasty. Follow up scans showed progressive right degenerative joint disease and necrosis of the femoral head. Per CT report it appears patient has bone. She received a nerve block/ablation on her right pelvis last Monday. She states today that she no longer wants to pursue any treatment. She was recently admitted to the hospital with urinary tract infection and blockage of her ureteral stents. Percutaneous nephrostomy tubes were placed. She will be having a scan to determine if the ureteral stents are now open or if she will continue with percutaneous nephrostomy tubes bilaterally. The plan is to discharge to home today on IV antibiotics for enterococcus bacteremia. PMH: Neutropenia, Iron Deficiency Anemia, Bilateral hip fractures due to tumors , HTN, Insomnia, GI bleed with melena, Hyponatremia, Right hydronephrosis with ureteral stent, Rectovaginal fistula, Recurrent MRSA UTI, Osteopenia. Surgical history: Ankle fracture, Hand surgery, . R Ureteral stent, Colostomy x 2, Port placement, Ureteral stent replaced 02/26/18. Bilateral percutaneous nephrostomy tubes placed. Allergies: NKDA Family Hx: Paternal GF: [place], Father Prostate [place]. 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 Smokes approximately 4 cigarettes a day and uses Marijuana occasionally. Advance Directives: DNR with Full treatment, no tube feeding. MOST uploaded to [employer]. MDPOA: Lina Tuttle- Sister Patient Goals of Care: 1. Comfort ACTIVE SYMPTOMS/ASSESSMENTS/RECOMMENDATIONS 1. Debility- Patient reports she is getting more mobile, she reports she is able to go up and down the stairs "just fine." Daughter reports she has been crawling up and down the stairs. Patient reports it does not hurt when she does this. She has a cane and a walker and has been using them. Feels uneasy in the shower, she does have a handheld showerhead. Recommend getting PT/OT evaluation and treat to help with mobility issues and assess for safety in bathroom and other places in the home. 2. Dehydration- She reports she has intermittent periods where she feels dehydrated. Sandra is trying to drink more, about 8 ounces an hour. Recommend Pedialyte if needed, water and tea. 3. Insomnia- Patient reports she has not been sleeping well. Steroids have been keeping her awake. Advised to try and take things easy, naps during the day. 4. Pain G 89.3: Patient complains of neuropathy pain, mostly to her right thigh and bilateral gluteal muscles. Today she reports pain is a 3/10, localized to her right sacrum. She received a nerve ablation earlier in the week to help with the pain. Fentanyl patch increased to 25 g every 72 hours. She also taking Dexamethasone 4 mg BID, prescription for Dilaudid 2 mg, 1-2 tablets Q3-4 hours PRN. Patient has been taking 1 tablet in the morning, midday , afternoon and at night. Discussed with her today that we will likely recommend changing the fentanyl patch to extended release morphine when she is home. 5. Urinary Incontinence- Patient reports she has a tumor on the nerve that innervates her bladder. This makes it feel like she has to urinate all the time. She has been wearing Depends to help with leakage. States nerve ablation has helped a little and she is hoping it helps more in the future. 6. Metastatic colorectal carcinoma C21.0: Progressive disease. She states today that she no longer wants to pursue any kind of treatment. 6. Prognosis: Less than 6 months 7. Hospice Eligibility: Yes: Goals Not Aligned 8. Recommended Hospice Admitting Diagnosis: Adenosquameous cell carcinoma MODIFIED [place] SYMPTOM ASSESSMENT SCALE 0-none; 1-3 mild; 4-6 moderate; 7-10 severe Unable to Respond: No Delirium: 0-none Depression: 0-none Anxiety: 0- none Tiredness (fatigue): 4-6 moderate Drowsiness (sleepiness): 0-none Pain: 4-6 moderate Nausea: 0-none Anorexia: 0-none Shortness of Breath: 0-none Secretions: 0-none Constipation: 0-none Symptom and side effect management: acceptable to patient and family RISK FACTORS FOR ADMISSION AND READMISSION TO THE HOSPITAL: o NEEDS ASSISTANCE WITH ADL'S/FALL RISK- yes o MEDICATION MANAGEMENT- no o SKILLED CARE NEEDED- no o LIVES ALONE- yes o CAREGIVER ANXIETY- no o HISTORY OF NONCOMPLIANCE WITH MEDICATION- no o HOMELESSNESS- no o DIAGNOSIS OF COGNITIVE IMPAIRMENT- no o MENTAL HEALTH DISORDER (i.e. ANXIETY, DEPRESSION)- no o COMPROMISED FINANCIAL STATUS- no o NEEDS MEDICAL COVERAGE- no o NEEDS PRIMARY CARE PHYSICIAN- no o INADEQUATE SUPPORT SYSTEM- no o INADEQUATE TRANSPORTATION- no o >2 HOSPITALIZATIONS IN PAST 12 MONTHS- no o DISEASE EDUCATION DEFICIT- no OBJECTIVE FINDING Palliative Performance Score: 80 FAST: N/A NYHA: N/A Wt.: MAC: 24 cm Vitals: Neuro: A&O to person, place, time and event. Pleasant and conversant HEENT: Normocephalic; atraumatic. No oral ulcerations. RESP: Regular, deep, symmetrical. No cough or wheezing. Breath sounds CTA. CV: S1/S2, No murmur, gallop or rub. Radial and pedal pulses 2+, no LE edema. GI: Soft, round, non-tender to palpation. Bowel sounds active time 4. LLQ colostomy, unable to visualize stoma. MSK: Thin, frail in appearance. Patient was laying on couch entire visit. Unsteady ambulation to walk 20 feet to scale. SKIN: Dry, intact, no visible wounds. LAB Data: N/A Medications: Valium 5 mg Q6-8 hours PRN Atenolol 100 mg daily Dilaudid 2 mg 1-2 tablets Q3-4 hours PRN pain Doxycycline hyclate 100 gm BID Fluconazole 400 mg daily Lisinopril 10 mg daily Lunesta 3 mg QHS PRN Metaxalone 800 mg daily for muscle pain Ondansetron 8 mg Q8 PRN Prochlorperazine 10 mg Q6 hours PRN Ranitidine 150 mg BID Lorazepam recently D/C Amoxicillin 250 mg Q8 hours Advance Care Planning Family Support - Ashley is sister Sepideh Tuttle PALLIATIVE SUMMARY: Sandra is a pleasant 72 year old female diagnosed with Stage IV Adenosquameous cell carcinoma at the anorectal junction. She also has metastasis to the liver, lung and bones. Patient has been having significant pain and her Fentanyl patch has been increased to 25 g every 72 hours with PRN Dilaudid. Patient is taking 4 PRN doses a day on top of her pain patch. She lives alone and feels unsteady in her bathroom while showering. PLAN: ELECTRICIAN'S HELPER: Follow up visit scheduled April 04, 2018 at 1300. Palliative Supportive Services: SW and CN to follow. Thank you for the opportunity to participate in the care of this patient. TIME SPENT: [id number] 35 minutes >50% of the time spent counseling, educating and coordinating the above topics. Davis Shell [facility] Plan: 04/02/18 15:36 Objective: Vital Signs Temp Pulse Resp BP Pulse Ox 36.6 C 56 L 16 163/83 H 97 04/02/18 07:40 04/02/18 07:40 04/02/18 07:40 04/02/18 07:40 04/02/18 07:40 Microbiology 03/30/18 17:03 Gram Stain - Final Other - Other 03/30/18 17:03 Mycobacterial Smear (TUCKER) - Final Other - Other Laboratory Results 04/02/18 04:31 04/02/18 04:31 04/01/18 04/02/18 04/03/18 05:59 05:59 05:59 Intake Total 1300 800 Output Total 1400 1775 Balance -100 -975 PT 14.3 SEC (12.0-15.0) 03/29/18 13:35 INR 1.09 (0.83-1.16) 03/29/18 13:35 ICD10 Worksheet Patient Problems: Problems Problem Status Onset Anemia Acute Colorectal cancer Acute Fever Acute Hyponatremia Acute Leukocytosis (leucocytosis) Acute Urinary tract infection Acute MRSA (methicillin resistant Staphylococcus aureus) Acute 06/03/15 Rectal adenocarcinoma Acute
--- NOTE | 2018-04-02 15:58 | ASMTCMCOM ---
CM Note CM Note Notes: Patient plan of care reviewed in rounds. Previously thought patient was safe per PT and OT. Working with therapy today evident patient is unsafe to dc home with significant additional support. She currently has an ostomy, nephrostomy, spann and needs IV infusions.The patient presents to staff that she is safe and able to care for herself but per family she is reliant on support from them. She has been hesitant to accept outside resources for help. She is now agreeable to HHC and home infusion but is adamant about not going to SNF rehab. The family is looking into hiring non medical caregivers and the patient is agreeable to this. Home infusion and HHC aware of discharge delay as support systems are put into place. CM to follow. Plan: Home with HHC, HI and other Home care as provided per outside resources. Date Signed: 04/02/2018 03:58 PM Electronically Signed By:Gladis Marie RN
--- NOTE | 2018-04-02 16:18 | SOAPPROG ---
SOAP Progress Note Assessment/Plan: E&M for Rectal cancer * Metastatic colorectal cancer: She recently started on Lonsurf which is a late stage therapy and a relatively low rate of response. She is realistic about her situation but would like to try it if possible. She requires a lot of different future procedures including stent replacements and nephrostomy tubes that can't be performed on hospice at this time. * enterococcus bacteremia, sens to ampicillin: urinary source; better on abx * Severe R hydro: s/p perc neph may represent ureteral stent obstruction or is d /t bladder retention; Dr Fernandes and he favors the latter. Home with perc neph; stent replaced in future and perc neph removed in 1-2 weeks; keep spann; follow up with dr fernandes as outpatient * Ilioostomy with prolapsed large bowel: reduced and now functional * Right hip fracture: pathologic; non-operative; pain control Subjective: There is some concerns raised about her ability to go home to take care of herself. Met with her along with the care management, her daughter, and the hospitalist. She is adamant that she wants to go home and not go to rehab. She was able to take care of herself before she got acutely ill. She is feeling much better since the antibiotics. Objective: Vital Signs Temp Pulse Resp BP Pulse Ox 36.6 C 56 L 16 163/83 H 97 04/02/18 07:40 04/02/18 07:40 04/02/18 07:40 04/02/18 07:40 04/02/18 07:40 Microbiology 03/30/18 17:03 Gram Stain - Final Other - Other 03/30/18 17:03 Mycobacterial Smear (TUCKER) - Final Other - Other Laboratory Results 04/02/18 04:31 04/02/18 04:31 04/01/18 04/02/18 04/03/18 05:59 05:59 05:59 Intake Total 1300 800 Output Total 1400 1775 Balance -100 -975 PT 14.3 SEC (12.0-15.0) 03/29/18 13:35 INR 1.09 (0.83-1.16) 03/29/18 13:35 Physical Exam - Physical Exam General Appearance: no apparent distress ICD10 Worksheet Patient Problems: Problems Problem Status Onset Anemia Acute Colorectal cancer Acute Fever Acute Hyponatremia Acute Leukocytosis (leucocytosis) Acute Urinary tract infection Acute MRSA (methicillin resistant Staphylococcus aureus) Acute 06/03/15 Rectal adenocarcinoma Acute
--- NOTE | 2018-04-02 16:51 | HOSPPROG ---
Hospitalist Progress Note Assessment/Plan: * Enterococcus sepsis - due to urinary source -IV ampicillin - home with IV abx per ID * Right hydronephrosis s/p perc nephrostomy -anterograde nephrostogram pending to eval stent patency * Ureteral stent - external compression on ureter from tumor -stent change in 1-2 weeks per IR -home with nephrostomy tube * Urinary retention -likely due to sacral radiation and caudal nerve block -home with spann - follow-up with Dena * Metastatic rectal cancer s/p colostomy -s/p pelvic radiation -on last line chemo - failed all previous regimens * Pathologic fracture of hip - non-operative * Pathologic sacral insufficiency fractures * Metabolic encephalopathy - due to sepsis -resolved Subjective: No new complaints. Objective: Vital Signs Temp Pulse Resp BP Pulse Ox 36.6 C 53 L 16 172/84 H 93 04/02/18 16:21 04/02/18 16:21 04/02/18 16:21 04/02/18 16:21 04/02/18 16:21 Microbiology 03/30/18 17:03 Gram Stain - Final Other - Other 03/30/18 17:03 Mycobacterial Smear (TUCKER) - Final Other - Other Laboratory Results 04/02/18 04:31 04/02/18 04:31 04/01/18 04/02/18 04/03/18 05:59 05:59 05:59 Intake Total 1300 800 Output Total 1400 1775 Balance -100 -975 PT 14.3 SEC (12.0-15.0) 03/29/18 13:35 INR 1.09 (0.83-1.16) 03/29/18 13:35 d/w Dr. Vahid Pat ID and Dr. Madison from IR - no change stent at this time CT abd - necrotic pelvis masses, hydro on right, destructive masses humerus and sacrum - Time Spent With Patient Time Spent with Patient: greater than 35 minutes Time Spent with Patient: Greater than 35 minutes spent on this patients care, greater than 50% of time spent counseling, educating, and coordinating care regarding the above mentioned plan. - Physical Exam Constitutional: no apparent distress, appears nourished, not in pain Cardiovascular: regular rate and rhythym, no murmur, rub, or gallop Respiratory: no respiratory distress, no rales or rhonchi, clear to auscultation Gastrointestinal: normoactive bowel sounds, soft, non-tender abdomen, no palpable masses Skin: no rashes or abrasions, no fluctuance, no induration Neurologic: AAOx3, sensation intact bilaterally Psychiatric: interacting appropriately, not anxious, not encephalopathic, thought process linear ICD10 Worksheet Patient Problems: Problems Problem Status Onset Hyponatremia Acute Rectal adenocarcinoma Acute MRSA (methicillin resistant Staphylococcus aureus) Acute 06/03/15 Fever Acute Colorectal cancer Acute Urinary tract infection Acute Anemia Acute Leukocytosis (leucocytosis) Acute
[2018-04-02] MEDS: CALCIUM CARBONATE 500 MG CHEWABLE TAB PO PRN (21:10)
[2018-04-02] MEDS: PATCH REMOVAL 1 EA PATCH TD SCH (21:13)
[2018-04-03] MEDS: ACETAMINOPHEN 500 MG TAB PO SCH ×2 (05:35→14:09)
[2018-04-03] MEDS: NYSTATIN SUSP 500000 UNIT/5 ML UD LIQ PO SCH ×3 (05:36→19:01)
[2018-04-03] MEDS: DEXAMETHASONE 4 MG TAB PO PRN (05:46)
[2018-04-03] MEDS: HYDROmorphONE/DILAUDID 2 MG TAB PO PRN ×3 (05:46→18:31)
[2018-04-03 05:48] LABS: PLATELET COUNT 229 10^3/uL (150-400)
[2018-04-03] MEDS: AMPICILLIN SODIUM 2 GM in NS 100 ML IV SCH ×3 (05:48→18:26)
[2018-04-03] MEDS: ENOXAPARIN 40 MG/0.4 ML SYR SC SCH (08:46)
[2018-04-03] MEDS: HYDROmorphONE/DILAUDID 2 MG TAB PO SCH (08:46)
[2018-04-03] MEDS: LIDOCAINE 4%/MENTHOL 1% PATCH TD SCH (08:46)
[2018-04-03] MEDS: DEXAMETHASONE 4 MG TAB PO SCH ×2 (08:47→14:10)
[2018-04-03] MEDS: ATENOLOL 50 MG TAB PO SCH (08:47)
[2018-04-03] MEDS: fentaNYL 25 MCG PATCH TD SCH (09:00)
[2018-04-03] MEDS: CALCIUM CARBONATE 500 MG CHEWABLE TAB PO PRN (10:27)
--- NOTE | 2018-04-03 11:06 | SOAPPROG ---
GEO Progress Note Assessment/Plan: E&M for Rectal cancer * Metastatic colorectal cancer: She has not started Lonsurf which is a late stage therapy and a relatively low rate of response. She is realistic about her situation. I recommend she hold off starting until the current issues have resolved. She agrees. She requires a lot of different future procedures including stent replacements and nephrostomy tubes that can't be performed on hospice at this time. * enterococcus bacteremia, sens to ampicillin: urinary source; better on abx * Severe R hydro: s/p perc neph may represent ureteral stent obstruction or is d /t bladder retention; Dr Fernandes favors the latter. Home with perc neph; stent replaced in future and perc neph removed in 1-2 weeks; keep spann; follow up with Dr. Fernandes as outpatient * Ilioostomy with prolapsed large bowel: reduced and now functional * Right hip fracture: pathologic; non-operative; pain control Subjective: Doing well without new complaints. Objective: Vital Signs Temp Pulse Resp BP Pulse Ox 36.6 C 68 16 183/92 H 97 04/03/18 07:49 04/03/18 08:47 04/03/18 07:49 04/03/18 08:47 04/03/18 07:49 Microbiology 03/30/18 17:03 Gram Stain - Final Other - Other 03/30/18 17:03 Mycobacterial Smear (TUCKER) - Final Other - Other Laboratory Results 04/03/18 05:30 04/03/18 05:30 04/02/18 04/03/18 04/04/18 05:59 05:59 05:59 Intake Total 800 800 246 Output Total 1778 1225 Balance -975 -425 246 PT 14.3 SEC (12.0-15.0) 03/29/18 13:35 INR 1.09 (0.83-1.16) 03/29/18 13:35 Physical Exam - Physical Exam General Appearance: no apparent distress ICD10 Worksheet Patient Problems: Problems Problem Status Onset Anemia Acute Colorectal cancer Acute Fever Acute Hyponatremia Acute Leukocytosis (leucocytosis) Acute Urinary tract infection Acute MRSA (methicillin resistant Staphylococcus aureus) Acute 06/03/15 Rectal adenocarcinoma Acute
--- NOTE | 2018-04-03 12:23 | PDIAF ---
- Diagnosis Diagnosis: Sepsis secondary to urinary source Code Status: Do Not Resuscitate - Medication Management Bearing Inspector Antibiotics: Ampicillin 8 g per 24 hr Shelter Antibiotic Stop Date: 04/09/18 Discharge Medications: electronically signed and located in the Home Medication List. PICC Care - Routine: N/A - Orders Services needed: Home Care, Registered Nurse, Certified Senior Java J2Ee Developer, Physical Therapy, Occupational Therapy Home Care Face to Face: I certify that this patient was under my care and that I had the required [id number] encounter meeting the encounter requirements on the discharge day. My findings support the fact that the patient is homebound as defined in Home Care Face to Face Continued: CMS Chapter 7 Medicare Benefits Manual 30.1.1 , The condition of the patient is such that there exists a normal inability to leave home and consequently, leaving home would require a considerable and taxing effort. Isolation Type: None Diet Texture: Regular Texture Diet, Thin Liquids, Meds Whole w/Liquids Trotter: Yes Additional Instructions: Nephrostomy tube care - Labs/Radiology [facility] Date: 04/05/18 (Please fax to Dr. Pat [phone]) - Follow Up Care Current Providers and Referrals: Cecilia Mcdermott MD [Primary Care Provider] - As per Instructions Gasper Fernandes MD [Medical Doctor] - follow up in 1 week (needs ureteral stent changed because it is blocked - please coordinate timing of stent change and removal of nephrostomy tube with Dr. Fernandes and IR) Vahid Pat MD [Medical Doctor] - ([facility] will call patient for follow- up)
[2018-04-03] MEDS: fentaNYL 12 MCG PATCH TD SCH ×3 (12:45→18:33)
[2018-04-03 12:46] VITALS: BP 181/85
--- NOTE | 2018-04-03 12:56 | ASMTCMCOM ---
CM Note CM Note Notes: Plan of care reviewed in am rounds. Patient is to dc to home with [facility], [facility], and palliative care services from [facility]. Family is to set up additional care providers. Final orders to all disciplines via allscripts. CM available should other needs arise. Plan: Dc to home with services as above. Date Signed: 04/03/2018 12:56 PM Electronically Signed By:Gladis Marie RN
[2018-04-03] MEDS ORDERED: FLUCONAZOLE 150 MG TAB PO ONE (14:05)
--- NOTE | 2018-04-03 17:46 | GDS ---
DISCHARGE DIAGNOSES: 1. Enterococcus sepsis due to urinary source. 2. Right hydronephrosis status post percutaneous nephrostomy. 3. Obstructed ureteral stent. 4. Urinary retention due to sacral radiation and caudal nerve block. 5. Metastatic rectal cancer status post colostomy. 6. Pathologic fracture of the hip, non operative. 7. Pathologic sacral insufficiency fractures. 8. Metabolic encephalopathy due to sepsis, resolved. HISTORY: Sandra is a 72-year-old female who presented with Enterococcus sepsis. Blood cultures w ere positive. Urine culture grew the same organism, that is clearly the source. She has a ureteral stent which she has changed every few months due to external compression from her malignancy. She wa s found to have both hydronephrosis as well as urinary retention. She had a Trotter catheter placed, a s well as a percutaneous nephrostomy tube placed. Anterior nephrostogram showed that her stent is ob structed and no longer patent. Interventional Dr. Madison in Interventional Radiology did not want to change his stent at this time. He feels it should be done through the percutaneous nephrostomy tube and the tract needs to be more mature prior to proceeding with this procedure. He recommends discha rge home with a nephrostomy tube in place and she can return to IR for stent exchange in 1-2 weeks. She will continue on IV antibiotics at discharge, IV ampicillin is currently prescribed to continue t hrough April 09. Decision can be made by Infectious Disease as an outpatient whether not that cou rse is adequate given the delay in stent exchange. She will also follow up with Dr. Fernandes regarding her urinary retention. She has recently had sacral radiation and caudal nerve block and we feel avelina t is likely contributing. Unfortunately, she is on last-line chemotherapy for her metastatic rectal cancer, and has failed all other therapies. Palliative Care is following. She is aware that she has limited life span remaining, but is not ready to transition to hospice at this time. She is however open to palliative care. She will discharge home with home therapies and home RN. DISCHARGE MEDICATIONS: Please see computerized record for full detailed list. New medications: 1. Fentanyl patch increased to 37.5 mg p.o. Q 72 hours. 2. Ampicillin 2 g IV q.6h until April 09. ADDITIONAL DISCHARGE INSTRUCTIONS: 1. Discharge home with nephrostomy tube and Trotter catheter. 2. Follow up with Dr. Fernandes regarding ureteral stent change, Trotter catheter discontinuation and per cutaneous nephrostomy tube discontinuation. 3. Follow up with Dr. Vahid Pat at [facility] regarding antibiotic plan. 4. Follow up with Paige at Dr. Cecilia Mcdermott, her primary oncologist. Greater than 30 minutes' time was spent arranging this discharge. Patient was seen and examined by rocio alejandro on the day of discharge. /[id number]/MODL
--- NOTE | 2018-04-05 09:31 | ASDISCHSUM ---
Discharge Information Plan Status:IV ABX/Infusion Medically Cleared to Leave: Discharge Date:04/03/2018 07:45 PM D/C Disposition:Home, Routine, Self-Care ADT D/C Disposition:Home Health Service Projected Discharge Date:04/03/2018 11:00 AM Transportation at D/C: Discharge Delay Reason: Follow-Up Date:04/03/2018 11:00 AM Discharge Slot: Final Diagnosis: Placement Information Referral Type:*Home Health Care Services Referral ID:[id number] Provider Name:[facility] Care Address 1:[address] [place] Address 2: City:[place] Selection Factors: State:[place] Referral Type:Home Infusion Referral ID:[id number] Provider Name:[facility] Address 1:[address] Address 2: City:[place] Selection Factors: State:[place] Referral Type:Palliative Care Referral ID:[id number] Provider Name:[facility] Address 1:[address] [place] [place] Phone Number: Address 2: Fax Number: City:[place] Selection Factors: State:[place] Patient Contact Information Contact Name:SOMMER Relationship:Daughter Address: Work Phone: City:[place] Alternate Phone: [facility] Code: Email: Financial Information Financial Class:Medicare Primary Plan Desc:MEDICARE INPATIENT Primary Plan Number:[id number] Secondary Plan Desc:JUSTYNA/MAGALIE SUPPLEMENT Secondary Plan Number:[id number] Assessment Information [facility] Initial CM Assessment Living Arrangements What is your living Answers: Alone arrangement? Who do you live with? Type Of Residence What kind of residence do Answers: House you live in? Case Management Evaluation Functional: Able to Answers: No Notes: please see note return Home with Prior Level of Function/Care Functional: ADL / IADL Answers: Chronic Illness Performance Deficits Due to: Mobility Issues Education Needs Answers: Hospice Palliative Care Discharge Plan Comments Coordination Status Comments Notes: Pt in FED after recent changes in cognition and mobility. Pt. is accompanied by her sister Sepideh ([phone]) and long time friend Ro ([phone]).Pt. has two daughters one in [facility] and one in [place] that help as much as possible. Sepideh and Ro have Medical/POA. Pt has undergone regular chemotherapy for the last 4 years. She lives alone in a three level home with stairs and no bathroom on the main level. Sepideh and Poornima reported that they have taken turns trying to manage the pt.s care but they are feeling overwhelmed and fear for the pt's safety. The pt does not have home care services and often attempts to manage ADL by herself. Pt recently made the decision to discontinue chemotherapy treatments. Sepideh and Poornima made outreach to [facility] to begin paliative care; however, pt was informed of a new chemo treatment and told her doctor she would like to try it. Sepideh and Poornima expressed frustration with the pt's ongoing care including the pt's capacity to make medical decisions and her recent treatment at [facility]. Sepideh and Poornima would like an assessment for in home nursing care and hospice to be coordinated through [facility] prior to discharge. Referrals for in home hospice/nursing required. Full DC needs TBD CM to follow. Date Signed: 03/29/2018 04:17 PM Electronically Signed By:Jacinto Weaver LCSW [facility] CM Progress Note CM Note CM Note Notes: Patient plan of care reviewed in am rounds. Likely not able to return to current situations without more support. See nte below. Mobility and cognition compromised. Awaiting therapy recommendations. CM to follow for needs. Plan: TBD Pt in FED after recent changes in cognition and mobility. Pt. is accompanied by her sister Sepideh ([phone]) and long time friend Ro ([phone]).Pt. has two daughters one in [facility] and one in [place] that help as much as possible. Sepideh and Ro have Medical/POA. Pt has undergone regular chemotherapy for the last 4 years. She lives alone in a three level home with stairs and no bathroom on the main level. Sepideh and Poornima reported that they have taken turns trying to manage the pt.s care but they are feeling overwhelmed and fear for the pt's safety. The pt does not have home care services and often attempts to manage ADL by herself. Pt recently made the decision to discontinue chemotherapy treatments. Sepideh and Poornima made outreach to [facility] to begin paliative care; however, pt was informed of a new chemo treatment and told her doctor she would like to try it. Sepideh and Poonrima expressed frustration with the pt's ongoing care including the pt's capacity to make medical decisions and her recent treatment at [facility]. Sepideh and Poornima would like an assessment for in home nursing care and hospice to be coordinated through [facility] prior to discharge. Referrals for in home hospice/nursing required. Full DC needs TBD CM to follow. Date Signed: 03/30/2018 01:43 PM Electronically Signed By:Gladis Marie RN [facility] CM Progress Note CM Note CM Note Notes: Spoke with pt regarding home care choice. She has had [facility] in the past and would like again. Sent referral via TAKO and left message. RN/PT/OT/TABLE MAKER. Pt will continue with [facility] but limit visits while [facility] is providing her services. CM will continue to follow. Date Signed: 03/31/2018 01:50 PM Electronically Signed By:NORAH Hollis [facility] CM Progress Note CM Note CM Note Notes: Patient plan of care reviewed in rounds. Previously thought patient was safe per PT and OT. Working with therapy today evident patient is unsafe to dc home with significant additional support. She currently has an ostomy, nephrostomy, spann and needs IV infusions.The patient presents to staff that she is safe and able to care for herself but per family she is reliant on support from them. She has been hesitant to accept outside resources for help. She is now agreeable to HHC and home infusion but is adamant about not going to SNF rehab. The family is looking into hiring non medical caregivers and the patient is agreeable to this. Home infusion and HHC aware of discharge delay as support systems are put into place. CM to follow. Plan: Home with HHC, [place] and other Home care as provided per outside resources. Date Signed: 04/02/2018 03:58 PM Electronically Signed By:Gladis Marie RN [facility] CM Progress Note CM Note CM Note Notes: Plan of care reviewed in am rounds. Patient is to dc to home with [facility], [facility], and palliative care services from [facility]. Family is to set up additional care providers. Final orders to all disciplines via allscripts. CM available should other needs arise. Plan: Dc to home with services as above. Date Signed: 04/03/2018 12:56 PM Electronically Signed By:Gladis Marie RN Intervention Information Intervention Type:*IM-Signed Date of Service:04/03/2018 02:32 PM Patient Type:Inpatient Staff Member:Alana Gongora Hours: Discipline: Severity: Comment:
== END 2018-04-03 19:45 | disposition home health service (06) | DRG 871 ==
LOC: F1N 18:18
PROVIDERS: ADMIT Family Medicine; ATTEND Family Medicine
PROC: 0T9030Z Drainage of Right Kidney with Drainage Device, Percutaneous Approach (ICD-10-PCS; principal; 2018-03-30 17:00)
PROC: BT111ZZ Fluoroscopy of Right Kidney using Low Osmolar Contrast (ICD-10-PCS; 2018-04-02)
DX: A41.81 Sepsis due to Enterococcus (principal); N39.0 Urinary tract infection, site not specified; G93.41 Metabolic encephalopathy; N13.1 Hydronephrosis with ureteral stricture, not elsewhere classified; C78.7 Secondary malignant neoplasm of liver and intrahepatic bile duct; C78.00 Secondary malignant neoplasm of unspecified lung; E87.1 Hypo-osmolality and hyponatremia; C79.51 Secondary malignant neoplasm of bone; C79.89 Secondary malignant neoplasm of other specified sites; M84.551A Pathological fracture in neoplastic disease, right femur, initial encounter for fracture; M84.48XA Pathological fracture, other site, initial encounter for fracture; B37.0 Candidal stomatitis; K94.19 Other complications of enterostomy; I10 Essential (primary) hypertension; R33.9 Retention of urine, unspecified; G47.09 Other insomnia; G89.3 Neoplasm related pain (acute) (chronic); R32 Unspecified urinary incontinence; Z66 Do not resuscitate; Z93.3 Colostomy status; Z79.899 Other long term (current) drug therapy; Z51.5 Encounter for palliative care; Z23 Encounter for immunization
CPT/HCPCS: 92610-GN; 96374; 97116-GP; 97161-GP; 97530-GP; C1729; C1769; G0008; G8978-GP-CJ; G8979-GP-CI; G8980-GP-CI; G8996-GN-CH; G8997-GN-CH; G8998-GN-CH; J0290; J0330; J0690; J0696; J1100; J1650; J1956; J2250; J2270; J2310; J2370; J2405; J2765; J3010; J3370; Q9967

== ENCOUNTER → 2018-04-10 | Outpatient (CLI) | payer OTHER, MEDICARE | LOC: FIMAGING 16:43 | PROVIDERS: ATTEND Internal Medicine Hematology & Oncology | DX: M79.89 Other specified soft tissue disorders (principal) ==

== ENCOUNTER 2018-04-20 08:48 | Day surgery (SDC) | payer OTHER, MEDICARE ==
[2018-04-20] MEDS ORDERED: MIDAZOLAM 2 MG/2 ML VIAL IVP PRN (09:15)
[2018-04-20] MEDS ORDERED: PROTAMINE SULFATE 50 MG/5 ML VIAL IVP PRN (09:15)
[2018-04-20] MEDS ORDERED: ceFAZolin 2 GM/DEXTROSE 100 ML IV ONE (09:15)
[2018-04-20] MEDS ORDERED: ALTEPLASE 2 MG VIAL IVP PRN (09:15)
[2018-04-20] MEDS ORDERED: fentaNYL 100 MCG/2 ML INJ IVP PRN (09:15)
[2018-04-20] MEDS ORDERED: FLUMAZENIL 0.5 MG/5 ML MDV IVP PRN (09:15)
[2018-04-20] MEDS ORDERED: HEPARIN 10,000 UNIT/10 ML MDV (1,000 UNIT/ML) IVP PRN (09:15)
[2018-04-20] MEDS ORDERED: NALOXONE HCL 0.4 MG/ML INJ IVP PRN (09:15)
[2018-04-20] MEDS ORDERED: NS 1,000 ML IV SCH (09:15)
[2018-04-20] MEDS ORDERED: GLUCAGON HCL 1 MG VIAL IVP PRN (09:15)
[2018-04-20] MEDS ORDERED: MEPERIDINE 25 MG/ML SYR IVP PRN (09:15)
--- NOTE | 2018-04-20 10:36 | PDPROPOC ---
Sedation Plan of Care Sedation Plan of Care: vital signs stable, mental status noted, patient educated of risks, benefits, alternatives, patient can tolerate sedation ASA Classification: ASA 2 Planned drugs: fentanyl, midazolam Mallampati Score: Class 2 Mallampati Reference Image: Patient passed 3-3-2 rule?: Yes
--- NOTE | 2018-04-20 10:40 | PDRADPRE ---
Radiology History & Physical Indication for procedure: cancer (Ureteral obstruction with Nephrostomy and occluded JJ ureteral stent in place. Plan for JJ stent removal and placement of Nephroureteral catheter for ability of maximal diversion. Also complains of persistent left thigh pain/numbness in L3/4 distribution. Discussed risks/ benefits of SNRB/KATHARINA and patient agreed to proceed. ) Home medications: Atenolol [Tenormin 100 mg (*)] 100 mg PO DAILY 03/29/18 [Last Taken 04/19/18] Dexamethasone [Decadron 4 MG (*)] 4 mg PO BID@0800,1400 03/29/18 [Last Taken 10/30] Eszopiclone 3 mg PO HS PRN 03/29/18 [Last Taken Unknown] HYDROmorphone HCL [Dilaudid 2 mg (*)] 2 - 4 mg PO Q3HRS PRN 03/29/18 [Last Taken Unknown] LORazepam [Ativan (*)] 1 mg PO Q6 PRN 03/29/18 [Last Taken 04/19/18] Diazepam 2 mg PO DAILY PRN 03/31/18 [Last Taken 04/19/18] HYDROmorphone HCL [Dilaudid 2 mg (*)] 4 mg PO DAILY 03/31/18 [Last Taken ] Amoxicillin BID 04/20/18 [Last Taken 04/19/18 21:00] Allergies/Adverse Reactions: No Known Allergies Allergy (Verified 07/11/17 14:26) Mental status: A&Ox3 Heart exam: regular rate and rhythm Lungs exam: clear to auscultation Mallampati Score: Class 2
[2018-04-20] MEDS ORDERED: ONDANSETRON 4 MG/2 ML VIAL IVP PRN (11:44)
[2018-04-20] MEDS ORDERED: ACETAMINOPHEN 325 MG TAB PO PRN (11:44)
[2018-04-20] MEDS ORDERED: IOPAMIDOL (ISOVUE-300) 100 ML BTL ONE (11:51)
--- NOTE | 2018-04-20 11:51 | PDRADPN ---
Radiology Procedure Note Date of Procedure: 04/20/18 Radiologist: Jon Mcarthur Anesthesia: IV Sedation Pre-op Diagnosis: Malignant ureteral stricture Post-op Diagnosis: Malignant ureteral stricture Indication: metastatic rectal cancer Procedure: JJ ureteral stent exchange for PCNU Finding(s): Successful retreival of JJ ureteral stent and placement of PCNU. UPJ and distal ureteral strictures encountered. Paitent's pain correlates to S2 distribution posterior thigh and related to destructive tumor at sacrum on left. Lumbar epidural unlikely to provide pain relief. Caudal epidural performed 4 weeks ago significantly improved pain. Inf/Abcess present in the surg proc area at time of surgery?: No
[2018-04-20 12:41] VITALS: BP 162/103
== END 2018-04-20 12:44 | disposition home or self-care (01) ==
LOC: FIMAGING 08:48
PROVIDERS: ATTEND Internal Medicine Hematology & Oncology
DX: N13.5 Crossing vessel and stricture of ureter without hydronephrosis (principal); T83.192A Other mechanical complication of indwelling ureteral stent, initial encounter; C20 Malignant neoplasm of rectum; M54.18 Radiculopathy, sacral and sacrococcygeal region
CPT/HCPCS: 50434; 75984; 99152; 99153; C1729; C1769; C1773; J1642; J2250; J2310; J3010; Q9967

== ENCOUNTER → 2018-05-31 | Outpatient (CLI) | payer OTHER, MEDICARE | LOC: FIMAGING 13:55 | PROVIDERS: ATTEND Internal Medicine Hematology & Oncology | DX: N13.30 Unspecified hydronephrosis (principal); R33.9 Retention of urine, unspecified; Z95.828 Presence of other vascular implants and grafts ==

== ENCOUNTER 2018-06-26 11:40 | Day surgery (SDC) | payer OTHER, MEDICARE ==
[2018-06-26] MEDS ORDERED: fentaNYL 100 MCG/2 ML INJ IVP PRN (11:52)
[2018-06-26] MEDS ORDERED: MEPERIDINE 25 MG/ML SYR IVP PRN (11:52)
[2018-06-26] MEDS ORDERED: MIDAZOLAM 2 MG/2 ML VIAL IVP PRN (11:52)
[2018-06-26] MEDS ORDERED: NALOXONE HCL 0.4 MG/ML INJ IVP PRN (11:52)
[2018-06-26] MEDS ORDERED: FLUMAZENIL 0.5 MG/5 ML MDV IVP PRN (11:52)
[2018-06-26] MEDS ORDERED: NS 1,000 ML IV SCH (12:00)
[2018-06-26] MEDS ORDERED: IOPAMIDOL (ISOVUE-300) 100 ML BTL ONE (13:49)
--- NOTE | 2018-06-26 14:03 | PDGENHP ---
History & Physical Chief Complaint: PELVIC TUMOR. RENAL OBSTRUCTION History of Present Illness: HAS HAD URETERAL STENTS FOR A LONG TIME NOW. NOW WITH NEPHROURETERAL STENT ON RT DRAINING BOTH KIDNEYS. PATIENT DOES NOT WANT A SUPRAPUBIC CATHETER. BLADDER OUTLET OBSTRUCTION/ATONIC BLADDER. DOES NOT NATURALLY URINATE. Pertinent Past, Social, Family History: ON ANOTHER ROUND OF CHEMOTHERAPY. Relevant Physical Exam: IN NO DISTRESS. PREVIOUS SACRAL ABLATION HAS KEPT HIP PAIN OFF. Cardiorespiratory Assessment: RRR, CTA
--- NOTE | 2018-06-26 14:05 | PDRADPN ---
Radiology Procedure Note Date of Procedure: 06/26/18 Radiologist: Snehal Ramos Anesthesia: IV Sedation Pre-op Diagnosis: PELVIC CANCER Post-op Diagnosis: SAME Indication: NEEDS URINARY DRAINAGE Procedure: RT NEPHROURETERAL STENT CHANGE Inf/Abcess present in the surg proc area at time of surgery?: No
[2018-06-26] MEDS ORDERED: ONDANSETRON 4 MG/2 ML VIAL IVP PRN (14:06)
[2018-06-26] MEDS ORDERED: ACETAMINOPHEN 325 MG TAB PO PRN (14:06)
[2018-06-26 14:58] VITALS: BP 183/96
== END 2018-06-26 15:02 | disposition home or self-care (01) ==
LOC: FIMAGING 11:40
PROVIDERS: ATTEND Internal Medicine Hematology & Oncology
PROC: 0TW530Z Revision of Drainage Device in Kidney, Percutaneous Approach (ICD-10-PCS; principal; 2018-06-26 14:13)
DX: N28.89 Other specified disorders of kidney and ureter (principal); Z96.0 Presence of urogenital implants
CPT/HCPCS: 50435; 75984; C1729; C1769; J1642; J2250; J2310; J3010; Q9967

== ENCOUNTER 2018-07-03 15:59 | Day surgery (SDC) | payer OTHER, MEDICARE ==
[2018-07-03] MEDS ORDERED: fentaNYL 100 MCG/2 ML INJ ONE (16:50)
[2018-07-03] MEDS ORDERED: SILVER NITRATE APPLICATOR 1 APPL TP ONE (17:00)
[2018-07-03] MEDS ORDERED: IOPAMIDOL (ISOVUE 370) 100 ML BTL IV ONE (17:18)
[2018-07-03] MEDS ORDERED: IOPAMIDOL (ISOVUE-M 300) 15 ML VIAL ONE (17:18)
[2018-07-03 17:57] VITALS: BP 117/64
== END 2018-07-03 17:45 | disposition home or self-care (01) ==
LOC: FIMAGING 15:59
PROVIDERS: ATTEND Radiology Diagnostic Radiology
PROC: 3E0K3KZ Introduction of Other Diagnostic Substance into Genitourinary Tract, Percutaneous Approach (ICD-10-PCS; principal; 2018-07-03)
DX: G89.18 Other acute postprocedural pain (principal); N13.9 Obstructive and reflux uropathy, unspecified; R31.9 Hematuria, unspecified; Z96.0 Presence of urogenital implants
CPT/HCPCS: J3010; Q9967

== ENCOUNTER 2018-07-19 14:26 | Day surgery (SDC) | payer OTHER, MEDICARE ==
[2018-07-19] MEDS ORDERED: FLUMAZENIL 0.5 MG/5 ML MDV IVP PRN (15:08)
[2018-07-19] MEDS ORDERED: MEPERIDINE 25 MG/ML SYR IVP PRN (15:08)
[2018-07-19] MEDS ORDERED: ONDANSETRON 4 MG/2 ML VIAL IVP ONE (15:08)
[2018-07-19] MEDS ORDERED: MIDAZOLAM 2 MG/2 ML VIAL IVP PRN (15:08)
[2018-07-19] MEDS ORDERED: fentaNYL 100 MCG/2 ML INJ IVP PRN (15:08)
[2018-07-19] MEDS ORDERED: NALOXONE HCL 0.4 MG/ML INJ IVP PRN (15:08)
[2018-07-19] MEDS ORDERED: NS 1,000 ML IV SCH (15:15)
--- NOTE | 2018-07-19 15:34 | PDGENHP ---
History & Physical Chief Complaint: PELVIC CANCER History of Present Illness: ROUTINE PERC NEPH TUBE CHANGE; BACK PAIN AND SIATIC PAIN Pertinent Past, Social, Family History: NON SMOKER. HAS BEEN MORE ACTIVE THAN USUAL. Relevant Physical Exam: PAIN IS AT LT BUTTOCK. SLIGHT HEMATURIA. Cardiorespiratory Assessment: RRR, CTA
[2018-07-19] MEDS ORDERED: IOPAMIDOL (ISOVUE-300) 100 ML BTL ONE (15:53)
[2018-07-19] MEDS ORDERED: IOPAMIDOL (ISOVUE-M 300) 15 ML VIAL ONE (15:53)
[2018-07-19] MEDS ORDERED: TRIAMCINOLONE ACETONIDE 200 MG/5 ML MDV IM ONE (15:53)
[2018-07-19] MEDS ORDERED: ONDANSETRON 4 MG/2 ML VIAL IVP PRN (16:21)
[2018-07-19] MEDS ORDERED: ACETAMINOPHEN 325 MG TAB PO PRN (16:21)
--- NOTE | 2018-07-19 16:21 | PDRADPN ---
Radiology Procedure Note Date of Procedure: 07/19/18 Radiologist: Snehal Ramos Anesthesia: IV Sedation Pre-op Diagnosis: pelvic cancer Post-op Diagnosis: same Indication: urinary obstruction; pain Procedure: nephrostomy check; caudal KATHARINA Inf/Abcess present in the surg proc area at time of surgery?: No
[2018-07-19 17:40] VITALS: BP 138/64
== END 2018-07-19 18:01 | disposition home or self-care (01) ==
LOC: FIMAGING 14:26
PROVIDERS: ATTEND Radiology Diagnostic Radiology
PROC: 3E0R3BZ Introduction of Anesthetic Agent into Spinal Canal, Percutaneous Approach (ICD-10-PCS; 2018-07-19)
PROC: 3E0R33Z Introduction of Anti-inflammatory into Spinal Canal, Percutaneous Approach (ICD-10-PCS; 2018-07-19)
PROC: 3E0K3KZ Introduction of Other Diagnostic Substance into Genitourinary Tract, Percutaneous Approach (ICD-10-PCS; principal; 2018-07-19 16:28)
DX: T83.092A Other mechanical complication of nephrostomy catheter, initial encounter (principal); M79.18 Myalgia, other site
CPT/HCPCS: J1642; J2250; J3010; J3301; Q9967

== ENCOUNTER 2018-09-04 11:47 | Day surgery (SDC) | payer OTHER, MEDICARE ==
[2018-09-04] MEDS ORDERED: ALTEPLASE 2 MG VIAL IVP PRN (11:51)
[2018-09-04] MEDS ORDERED: HEPARIN 10,000 UNIT/10 ML MDV (1,000 UNIT/ML) IVP PRN (11:51)
[2018-09-04] MEDS ORDERED: ceFAZolin 2 GM/DEXTROSE 100 ML IV ONE (11:51)
[2018-09-04] MEDS ORDERED: MEPERIDINE 25 MG/ML SYR IVP PRN (11:51)
[2018-09-04] MEDS ORDERED: fentaNYL 100 MCG/2 ML INJ IVP PRN (11:51)
[2018-09-04] MEDS ORDERED: PROTAMINE SULFATE 50 MG/5 ML VIAL IVP PRN (11:51)
[2018-09-04] MEDS ORDERED: FLUMAZENIL 0.5 MG/5 ML MDV IVP PRN (11:51)
[2018-09-04] MEDS ORDERED: GLUCAGON HCL 1 MG VIAL IVP PRN (11:51)
[2018-09-04] MEDS ORDERED: NALOXONE HCL 0.4 MG/ML INJ IVP PRN (11:51)
[2018-09-04] MEDS ORDERED: MIDAZOLAM 2 MG/2 ML VIAL IVP PRN (11:51)
[2018-09-04] MEDS ORDERED: NS 1,000 ML IV SCH (12:00)
[2018-09-04] MEDS ORDERED: IOPAMIDOL (ISOVUE-300) 100 ML BTL ONE ×2 (12:25→14:30)
[2018-09-04] MEDS ORDERED: LIDOCAINE 1% 300 MG/30 ML SDV ONE (12:25)
[2018-09-04 12:50] LABS: PLATELET COUNT 191 10^3/uL (150-400)
--- NOTE | 2018-09-04 12:55 | PDPROPOC ---
Sedation Plan of Care ASA Classification: ASA 3 Mallampati Score: Class 2 Mallampati Reference Image:
[2018-09-04 13:02] LABS: INR 0.94 (0.83-1.16); PROTIME(PATIENT) 12.2 SEC (12.0-15.0)
[2018-09-04] MEDS ORDERED: ACETAMINOPHEN 325 MG TAB PO PRN (13:15)
[2018-09-04] MEDS ORDERED: ONDANSETRON 4 MG/2 ML VIAL IVP PRN (13:15)
[2018-09-04 14:17] VITALS: BP 188/96
== END 2018-09-04 14:20 | disposition home or self-care (01) ==
LOC: FIMAGING 11:47
PROVIDERS: ATTEND Internal Medicine Hematology & Oncology
PROC: 0TW530Z Revision of Drainage Device in Kidney, Percutaneous Approach (ICD-10-PCS; principal; 2018-09-04 13:27)
DX: Z46.6 Encounter for fitting and adjustment of urinary device (principal); C21.8 Malignant neoplasm of overlapping sites of rectum, anus and anal canal
CPT/HCPCS: J0690; J1642; J1644; J2250; J2310; J3010; Q9967

== ENCOUNTER 2018-09-06 13:43 | Day surgery (SDC) | payer OTHER, MEDICARE ==
[2018-09-06] MEDS ORDERED: NALOXONE HCL 0.4 MG/ML INJ IVP PRN (14:20)
[2018-09-06] MEDS ORDERED: MIDAZOLAM 2 MG/2 ML VIAL IVP PRN (14:20)
[2018-09-06] MEDS ORDERED: fentaNYL 100 MCG/2 ML INJ IVP PRN (14:20)
[2018-09-06] MEDS ORDERED: FLUMAZENIL 0.5 MG/5 ML MDV IVP PRN (14:20)
[2018-09-06] MEDS ORDERED: NS 1,000 ML IV SCH (14:30)
[2018-09-06] MEDS ORDERED: MIDAZOLAM 2 MG/2 ML VIAL ONE (14:36)
[2018-09-06] MEDS ORDERED: NALOXONE HCL 0.4 MG/ML INJ ONE (14:36)
[2018-09-06] MEDS ORDERED: FLUMAZENIL 0.5 MG/5 ML MDV IVP ONE (14:36)
[2018-09-06] MEDS ORDERED: fentaNYL 100 MCG/2 ML INJ ONE (14:37)
[2018-09-06] MEDS ORDERED: IOPAMIDOL (ISOVUE-M 300) 15 ML VIAL ONE (14:44)
[2018-09-06] MEDS ORDERED: TRIAMCINOLONE ACETONIDE 200 MG/5 ML MDV IM ONE (14:44)
--- NOTE | 2018-09-06 14:51 | PDGENHP ---
History & Physical Chief Complaint: SEVERE PAIN IN BUTTOCK History of Present Illness: RECTAL CANCER, GROWING MASS ON LT SACRUM Pertinent Past, Social, Family History: SEVERE BACK AND BUTTOCK PAIN Relevant Physical Exam: CAN'T GET COMFORTABLE WITH PAIN Cardiorespiratory Assessment: RRR, CTA
[2018-09-06] MEDS ORDERED: ACETAMINOPHEN 325 MG TAB PO PRN (15:31)
[2018-09-06] MEDS ORDERED: ONDANSETRON 4 MG/2 ML VIAL IVP PRN (15:31)
--- NOTE | 2018-09-06 15:31 | PDRADPN ---
Radiology Procedure Note Date of Procedure: 09/06/18 Radiologist: Snehal Ramos Anesthesia: IV Sedation Pre-op Diagnosis: SEVERE PAIN Post-op Diagnosis: SAME Indication: RECTAL CA METASTASIS Procedure: CAUDAL KATHARINA Inf/Abcess present in the surg proc area at time of surgery?: No
[2018-09-06 16:18] VITALS: BP 115/61
== END 2018-09-06 16:46 | disposition home or self-care (01) ==
LOC: FIMAGING 13:43
PROVIDERS: ATTEND Radiology Diagnostic Radiology
PROC: 3E0S3BZ Introduction of Anesthetic Agent into Epidural Space, Percutaneous Approach (ICD-10-PCS; principal; 2018-09-06 15:37)
PROC: 3E0S33Z Introduction of Anti-inflammatory into Epidural Space, Percutaneous Approach (ICD-10-PCS; principal; 2018-09-06 15:37)
DX: M54.5 Low back pain (principal); C20 Malignant neoplasm of rectum; C79.51 Secondary malignant neoplasm of bone
CPT/HCPCS: J1642; J2250; J2310; J3010; J3301; Q9967

== ENCOUNTER 2018-09-10 07:26 | Day surgery (SDC) | payer OTHER, MEDICARE ==
--- NOTE | 2018-09-10 08:50 | PDANEPAE ---
ANE History of Present Illness [address] ablation ANE Past Medical History - Cardiovascular History Hx Hypertension: Yes Hx Arrhythmias: No Hx Chest Pain: No Hx Coronary Artery / Peripheral Vascular Disease: No Hx CHF / Valvular Disease: No Hx Palpitations: No Cardiovascular History Comment: SVT runs X2 with cardioversion - Pulmonary History Hx COPD: No Hx Asthma/Reactive Airway Disease: No Hx Recent Upper Respiratory Infection: No Hx Oxygen in Use at Home: No Hx Sleep Apnea: No Pulmonary History Comment: LUNG METATSTASES - Neurologic History Hx Cerebrovascular Accident: No Hx Seizures: No Hx Dementia: No Neurologic History Comment: 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 - Endocrine History Hx Diabetes: No - Renal History Hx Renal Disorders: Yes Renal History Comment: NEPHROSTOMY TUBE HX; Ureteral Stents - Liver History Hx Hepatic Disorders: Yes Hepatic History Comment: LIVER METASTASES - Neurological & Psychiatric Hx Hx Neurological and Psychiatric Disorders: No - Cancer History Hx Cancer: Yes 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 NEUROPATHY in hands - Chronic Pain History Chronic Pain: Yes - Surgical History Prior Surgeries: Urostomy. CHOLOSTOMY X2. TONSILECTOMY. ANKLE SURG. C SEC. PORT PLACEMENT ANE Review of Systems Review of systems is: negative Review of Systems: - Exercise capacity METS (RN): 3 METS ANE Patient History - Allergies Allergies/Adverse Reactions: No Known Allergies Allergy (Verified 09/06/18 11:20) - Home Medications Home Medications: Atenolol [Tenormin 100 mg (*)] 100 mg PO DAILY 03/29/18 [Last Taken 1 Day Ago ~ 09/09/18] Advil 400 mg PO PRN PRN 09/06/18 [Last Taken 09/05/18] traMADol 1 tab PO Q6-8PRN PRN 09/06/18 [Last Taken 09/06/18 02:00] AMOXICILLIN 250 mg PO BID 09/07/18 [Last Taken Unknown] Ondansetron 8 mg PO PRN 09/07/18 [Last Taken Unknown] Valium 2 MG (*) 2 mg PO PRN PRN 09/07/18 [Last Taken Unknown] - Anes Hx Anes Hx: post operative nausea - Smoking Hx Smoking Status: Former smoker - Family Anes Hx Family Hx Anesthesia Complications: NONE ANE Labs/Vital Signs - Vital Signs Blood Pressure: 174/99 Heart Rate: 60 Respiratory Rate: 17 O2 Sat (%): 100 Height: 165.1 cm Weight: 52.617 kg ANE Physical Exam - Airway Neck exam: FROM Mallampati Score: Class 1 Mouth exam: normal dental/mouth exam - Pulmonary Pulmonary: no respiratory distress - Cardiovascular Cardiovascular: regular rate and rhythym - ASA Status ASA Status: II ANE Anesthesia Plan Anesthesia Plan: general endotracheal anesthesia
[2018-09-10] MEDS ORDERED: LIDOCAINE 1% 300 MG/30 ML SDV ONE (08:57)
[2018-09-10] MEDS ORDERED: PROPOFOL 200 MG/20 ML VIAL ONE (09:10)
[2018-09-10] MEDS ORDERED: fentaNYL 100 MCG/2 ML INJ ONE (09:10)
[2018-09-10] MEDS ORDERED: ROCURONIUM 50 MG/5 ML VIAL ONE (09:17)
--- NOTE | 2018-09-10 09:46 | PDRADPRE ---
Radiology History & Physical Indication for procedure: cancer (Severe, intractable pelvic/sacral nerve pain from destructive left sacral mass. Plan for palliative cryoablation. ) Home medications: Atenolol [Tenormin 100 mg (*)] 100 mg PO DAILY 03/29/18 [Last Taken 1 Day Ago ~ 09/09/18] Advil 400 mg PO PRN PRN 09/06/18 [Last Taken 09/05/18] traMADol 1 tab PO Q6-8PRN PRN 09/06/18 [Last Taken 09/06/18 02:00] AMOXICILLIN 250 mg PO BID 09/07/18 [Last Taken Unknown] Ondansetron 8 mg PO PRN 09/07/18 [Last Taken Unknown] Valium 2 MG (*) 2 mg PO PRN PRN 09/07/18 [Last Taken Unknown] Allergies/Adverse Reactions: No Known Allergies Allergy (Verified 09/06/18 11:20) Mental status: A&Ox3 Heart exam: regular rate and rhythm Lungs exam: clear to auscultation Mallampati Score: Class 3
[2018-09-10] MEDS ORDERED: ONDANSETRON 4 MG/2 ML VIAL IVP PRN ×2 (12:13→12:26)
--- NOTE | 2018-09-10 12:13 | PDRADPN ---
Radiology Procedure Note Date of Procedure: 09/10/18 Radiologist: Jon Mcarthur Anesthesia: GET(General Endotracheal) Pre-op Diagnosis: Destructive Sacral Mass Post-op Diagnosis: Destructive Sacral Mass Indication: Destructive Sacral Mass- Rectal Cancer Procedure: CT guided ablation (palliative) Finding(s): Successful cryoablation large sacral mass on left. No complications. Please see separately dictated radiology report for full details. Inf/Abcess present in the surg proc area at time of surgery?: No
[2018-09-10] MEDS ORDERED: NALOXONE HCL 0.4 MG/ML INJ IVP PRN (12:26)
[2018-09-10] MEDS ORDERED: PROMETHAZINE HCL 25 MG/ML INJ IVP PRN (12:26)
[2018-09-10] MEDS ORDERED: fentaNYL 100 MCG/2 ML INJ IVP PRN (12:26)
--- NOTE | 2018-09-10 12:29 | POSTANESTH ---
Post Anesthetic Evaluation Cardiovascular Status: Normal, Stable Respiratory Status: Normal, Stable Level of Consciousness/Mental Status: Can Participate in Eval Pain Control: Adequate, Prn Tx Ordered Nausea/Vomiting Control: Adequate, Prn Tx Ordered Complications Possibly Related to Anesthesia: None Noted (Pt given 100 mg Bridion in PACU. Pt appeared weak, although did not complain of weakness. Improved after Bridion given)
[2018-09-10] MEDS ORDERED: ENALAPRILAT DIHYDRATE 1.25 MG/ML VIAL ONE ×2 (13:12→13:51)
[2018-09-10] MEDS: ENALAPRILAT DIHYDRATE 1.25 MG/ML VIAL IVP PRN ×2 (13:22→13:55)
[2018-09-10] MEDS ORDERED: ONDANSETRON 4 MG/2 ML VIAL ONE (13:33)
[2018-09-10] MEDS ORDERED: LIDOCAINE 2% 2 ML INJ ONE (13:34)
[2018-09-10] MEDS ORDERED: DEXAMETHASONE 10 MG/ML VIAL ONE (13:34)
[2018-09-10 14:37] VITALS: BP 154/81
== END 2018-09-10 15:30 | disposition home or self-care (01) ==
LOC: FIMAGING 07:26
PROVIDERS: ATTEND Radiology Vascular & Interventional Radiology
PROC: 0J5 Subcutaneous Tissue and Fascia, Destruction (ICD-10-PCS; principal; 2018-09-10 09:00)
DX: C79.89 Secondary malignant neoplasm of other specified sites (principal); C79.51 Secondary malignant neoplasm of bone; C78.7 Secondary malignant neoplasm of liver and intrahepatic bile duct; C78.01 Secondary malignant neoplasm of right lung; Z85.048 Personal history of other malignant neoplasm of rectum, rectosigmoid junction, and anus; I10 Essential (primary) hypertension; K21.9 Gastro-esophageal reflux disease without esophagitis
CPT/HCPCS: J1100; J1642; J2405; J2704; J3010

== ENCOUNTER → 2018-10-05 | Day surgery (SDC) | payer OTHER, MEDICARE | END | disposition home or self-care (01) | LOC: FIMAGING 12:51 | PROVIDERS: ATTEND Radiology Diagnostic Radiology | DX: Z43.6 Encounter for attention to other artificial openings of urinary tract (principal); Z53.9 Procedure and treatment not carried out, unspecified reason ==